=== PATIENT | male | born 1935 | race Caucasian/White ===

== ENCOUNTER 2017-08-14 13:54 | Emergency (ER) | payer BC, OTHER ==
--- NOTE | 2017-08-14 14:14 | CPEKG ---
Heart Rate: 66 RR Interval: 909 P-R Interval: 176 QRSD Interval: 98 QT Interval: 416 QTC Interval: 436 P Denton: 46 QRS Denton: -19 T Wave Denton: 22 EKG Severity - OTHERWISE NORMAL ECG - EKG Impression: SINUS RHYTHM EKG Impression: ATRIAL PREMATURE COMPLEX EKG Impression: BORDERLINE LEFT AXIS DEVIATION Electronically Signed By: Tayo Rudd 14-Aug-2017 14:26:02
--- NOTE | 2017-08-14 14:17 | EDPHY ---
H & P Smoking Status: Never smoked Time Seen by Provider: 08/14/17 14:07 HPI/ROS: CHIEF COMPLAINT: Dizziness HISTORY OF PRESENT ILLNESS: Patient says he has symptoms for"2 or 3 days"so his last known normal was at least more than 24 hr ago. He presents today saying that he"has trouble walking"because he feels weak and off balance. He specifically denies that it is positional. It does not get better or worse with turning his head or standing up. It is not associated with nausea or vomiting or neck pain or headache. Symptoms persistent. REVIEW OF SYSTEMS: Eye: no change in vision, no diplopia ENT: no sore throat Cardiac: no chest pain or syncope Pulmonary: no cough or SOB Abdomen: no vomiting, diarrhea, abdominal pain Musculoskeletal: Chronic back pain for which he had MRI done 2 weeks ago, this is unchanged Skin: no rash Neuro: no headache Constitutional: no fever : no urinary symptoms A comprehensive 10 point review of systems is otherwise negative aside from elements mentioned in the history of present illness. PAST MEDICAL HISTORY: Chronic back pain and arthritis for which he takes gabapentin Social history: Patient primarily lives in [facility] but is visiting his ex here in [place] and staying with friends. Nonsmoker. General Appearance: Alert and conversant, cooperative. Eyes: No scleral icterus. ENT, Mouth: Normal mucous membranes. Normal tympanic membranes. Respiratory: Normal respiratory effort, breath sounds equal, lungs are clear to auscultation. Cardiovascular: Regular rate and rhythm. Gastrointestinal: Abdomen is soft and non tender. Neurological: Alert, face symmetric, normal motor and sensory in extremities. Patient has fluent speech. He has normal oezcbh-wc-hikc and kvfp-yr-sdsh bilaterally. Toes are downgoing. Extraocular motion is intact. He walked back to the room unassisted. Skin: Warm and dry, no rashes. Musculoskeletal: No peripheral edema. Psychiatric: Not agitated. Emergency Department course/MDM: Patient will get MRI to evaluate his cerebellum and the possibility of ischemic stroke or tumor. I think vertebral or aortic dissection would be less likely. EKG shows sinus rhythm. Not a stroke alert because of the last known normal greater than 24 hr. 1500: signed out to [facility], MRI pending. (Tayo Rudd) Constitutional: Initial Vital Signs Temperature (C) 36.4 C 08/14/17 13:59 Heart Rate 79 08/14/17 13:59 Respiratory Rate 16 08/14/17 13:59 Blood Pressure 162/84 H 08/14/17 13:59 O2 Sat (%) 97 08/14/17 13:59 O2 Delivery Mode Room Air Allergies/Adverse Reactions: No Known Allergies Allergy (Unverified 08/14/17 13:57) Home Medications: Medication Instructions Recorded Gabapentin 08/14/17 Medical Decision Making - Diagnostics EKG Interpretation: 12-lead EKG interpreted by me; official reading is in trace master. My interpretation is sinus rhythm with PAC and borderline left axis. (Tayo Rudd) Imaging Results: Imaging Impressions Brain MRI 08/14/17 14:17 Impression: 1. Moderately advanced cerebral cortical atrophy, with chronic microvascular ischemic gliosis. 2. 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 There is no evidence of an acute or subacute infarct. Findings were discussed with Susie Bustos MD at 16:37, on 08/14/2017. Orbit X-Ray 08/14/17 15:00 Impression: 1. No radiopaque foreign object identified in the orbits. 2. Carotid atherosclerosis. Neck MRA 08/14/17 15:19 Impression: 1. MRA of the cervical carotid arteries demonstrates no evidence of a flow- limiting stenosis, occlusion, or dissection. 2. Mild nonhemodynamically significant stenosis involving the origin of the left vertebral artery near its ostium, and relatively diminutive appearance of the distal right vertebral artery, proximal to the vertebrobasilar confluence ( which can be seen as a normal variant). Measurements of carotid stenosis is based on the residual internal carotid diameter with [place] Symptomatic Carotid Endarterectomy Trial (NASCET) based stenosis levels. Findings were discussed with Susie Bustos MD at 16:37, on 08/14/2017. 4:40 p.m., discussed the above-noted imaging with staff radiologist Dr. Morales Plasencia. Please see reports above for further details. (Susie Berman) ED Course/Re-evaluation: I took over care of this patient at 3:00 p.m.. This patient presents to the emergency department with vertigo. We are currently waiting results of imaging including MRI of the brain and MRA of the neck. 4:50 p.m., I re-evaluated this patient. His repeat neurologic Assessment is nonfocal. Heel to braswell, finger to nose normal. He walks unassisted. Results of his MRI and MRA were discussed with him in detail. He does feel comfortable going home at this time and I feel he is safe for discharge. I discussed follow -up with Neurology for re-evaluation early this coming week. He endorses this plan. Return to emergency department precautions thoroughly reviewed with him. All of his questions were answered. He was discharged in good condition. ( Susie Berman) - Data Points Laboratory Results: Laboratory Results 08/14/17 14:17 08/14/17 14:17 18 08/14/17 14:17 14:17 WBC 5.33 10^3/uL 10^3/uL (3.80-9.50) RBC 4.06 10^6/uL L 10^6/uL (4.40-6.38) Hgb 13.4 g/dL L g/dL (13.7-17.5) Hct 39.1 % L % (40.0-51.0) MCV 96.3 fL fL (81.5-99.8) MCH 33.0 pg pg (27.9-34.1) MCHC 34.3 g/dL g/dL (32.4-36.7) RDW 13.1 % % (11.5-15.2) Plt Count 261 10^3/uL 10^3/uL (150-400) MPV 10.5 fL fL (8.7-11.7) Neut % (Auto) 57.1 % % (39.3-74.2) Lymph % (Auto) 27.4 % % (15.0-45.0) [place] % (Auto) 7.9 % % (4.5-13.0) Eos % (Auto) 6.6 % % (0.6-7.6) Baso % (Auto) 0.8 % % (0.3-1.7) Nucleat RBC Rel Count 0.0 % % (0.0-0.2) Absolute Neuts (auto) 3.05 10^3/uL 10^3/uL (1.70-6.50) Absolute Lymphs (auto) 1.46 10^3/uL 10^3/uL (1.00-3.00) Absolute Monos (auto) 0.42 10^3/uL 10^3/uL (0.30-0.80) Absolute Eos (auto) 0.35 10^3/uL 10^3/uL (0.03-0.40) Absolute Basos (auto) 0.04 10^3/uL 10^3/uL (0.02-0.10) Absolute Nucleated RBC 0.00 10^3/uL 10^3/uL (0-0.01) Immature Gran % 0.2 % % (0.0-1.1) Immature Gran # 0.01 10^3/uL 10^3/uL (0.00-0.10) Sodium 146 mEq/L H mEq/L (135-145) Potassium 4.2 mEq/L mEq/L (3.5-5.2) Chloride 108 mEq/L mEq/L (97-110) Carbon Dioxide 24 mEq/l mEq/l (22-31) Anion Gap 14 mEq/L mEq/L (8-16) BUN 23 mg/dL mg/dL (7-23) Creatinine 1.0 mg/dL mg/dL (0.7-1.3) Estimated GFR > 60 Glucose 112 mg/dL H mg/dL (70-100) Calcium 9.7 mg/dL mg/dL (8.5-10.4) Departure - Departure Disposition: Home, Routine, Self-Care Clinical Impression: Fatigue, Gait disturbance Condition: Good Instructions: Weakness (ED), Fall Prevention for Older Adults (ED) Additional Instructions: Read and follow provided instructions. Follow-up with Neurology, Dr. Morales Dewitt, Wednesday or Wednesday of this week for re-evaluation. Call their office on Wednesday morning for appointment time. Explain that this is for an emergency department follow-up. They will have access to our records here. Keep well hydrated. Return to the emergency department for worsening symptoms or other serious concerns. Referrals: NONE *PRIMARY CARE P,. [Primary Care Provider] - As per Instructions Morales Dewitt DO [Medical Doctor] - As per Instructions
[2017-08-14 14:23] LABS: PLATELET COUNT 261 10^3/uL (150-400)
[2017-08-14] MEDS ORDERED: GADOBUTROL 10 ML VIAL IVP ONE (15:22)
[2017-08-14 17:09] VITALS: BP 135/80
== END 2017-08-14 17:09 | disposition home or self-care (01) ==
DX: R53.83 Other fatigue (principal); R26.89 Other abnormalities of gait and mobility
CPT/HCPCS: 70200; 70548; 70551; 93005; 99285; A9585

== ENCOUNTER → 2017-09-08 | Outpatient (CLI) | payer OTHER | LOC: FIMAGING 14:10 | PROVIDERS: ATTEND Family Medicine | DX: Z01.818 Encounter for other preprocedural examination (principal); M51.36 Other intervertebral disc degeneration, lumbar region ==

== ENCOUNTER 2018-05-20 14:17 | Inpatient (IN) | payer OTHER ==
--- NOTE | 2018-05-20 14:45 | EDPHY ---
H & P Time Seen by Provider: 05/20/18 14:25 HPI/ROS: CHIEF COMPLAINT: "I need you to fix my hand" HISTORY OF PRESENT ILLNESS: 83-year-old male took a taxi to the ER complaining of right wrist pain for the past several weeks. Atraumatic. No fever no chills. This has been a chronic, reoccurring issue for him, "it's from arthritis". He denies trauma. Denies fall. Denies paresthesia. Denies fever or chills. Denies flu-like symptoms. PRIMARY CARE PROVIDER: None Past medical history: Possible history of rheumatoid arthritis, although patient has limited information about this. Prior history of left wrist fracture. Possible dementia,"I think I have memory issues" SOCIAL HISTORY: Currently living in a hotel in [place] . He has no local family. PHYSICAL EXAM (Prior to examination, patient consented to physical exam, hands were washed and my usual and customary physical exam procedures followed) 1) GENERAL: Well-developed, well-nourished, alert and oriented to person place. He is well put together, clean. His clothing is clean. He believes the year is is 2081. . Appears nontoxic 2) HEAD: Normocephalic, atraumatic 3) HEENT: Pupils equal, round, reactive to light bilaterally. Sclera anicteric. 4) NECK: Full range of motion, no meningeal signs. 5) LUNGS: Clear auscultation bilaterally, no wheezes, no rhonchi, no retractions. 6) HEART: Regular rate and rhythm, no murmur, no heave, no gallop. 7) ABDOMEN: No guarding, no rebound, no focal tenderness, negative McBurney's, negative Arrieta's, negative Rovsing's, negative peritoneal sign, 8) MUSCULOSKELETAL: Right hand: Erythema to the dorsal radial wrist and hand. Tender. Increased temperature and warmth with concurrent induration. Limited range of motion both actively and passively secondary to pain. No crepitus. No lymphangitic streaking. Otherwise, Moving all extremities, no focal areas of tenderness, no obvious trauma. No peripheral edema or discoloration. 9) BACK: No CVA tenderness, Erythema line vertebral tenderness, no fluctuance, no step-off, no obvious trauma, no visual or palpable abnormality. 10) SKIN: No rash, no petechiae. 11) Psychiatric: Patient is oriented X 3, there is no agitation. DIFFERENTIAL DIAGNOSIS: in no particular order including but not limited to fracture, sprain, cellulitis, compartment syndrome, septic arthritis, crystal arthritis Smoking Status: Never smoked Constitutional: Initial Vital Signs Temperature (C) 37.4 C 05/20/18 14:18 Heart Rate 88 05/20/18 14:18 Respiratory Rate 18 05/20/18 14:18 Blood Pressure 156/88 H 05/20/18 14:18 O2 Sat (%) 96 05/20/18 14:18 O2 Delivery Mode Room Air Allergies/Adverse Reactions: No Known Allergies Allergy (Verified 05/20/18 14:17) Home Medications: Medication Instructions Recorded NK [No Known Home Meds] 05/20/18 MDM/Departure - MDM Imaging Results: Imaging Impressions Hand X-Ray 05/20/18 14:31 Impression: 1. No acute osseous findings. 2. Multifocal degenerative change and chondrocalcinosis, suggesting CPPD with SLAC wrist. Wrist X-Ray 05/20/18 14:31 Impression: 1. No acute osseous findings. 2. Multifocal degenerative change and chondrocalcinosis with widening of the scapholunate interval, suggesting CPPD with SLAC wrist. Images reviewed myself Medications Given: Discontinued Medications Cefazolin Sodium/Dextrose (Ancef) 100 mls @ 200 mls/hr IV EDNOW ONE PRN Reason: Protocol Stop: 05/20/18 16:15 Last Admin: 05/20/18 16:24 Dose: 100 mls ED Course/Re-evaluation: Patient was also seen and examined by Dr. Trenton Costello in the ER. Concern for possible septic arthritis verses cellulitis versus crystalline arthritis in this patient. He has overlying skin changes. I do not think that diagnostic arthrocentesis is appropriate from the emergency department at this time given his overlying skin changes. Addition, the patient is noted to have inconsistencies in his history, concerning for possible dementia. I do not feel that the patient can be appropriately discharged at this time as I am concerned about his ability to follow up with outpatient appointments. He does present himself well, has clean clothing and his possessions with him which is encouraging. Upon speaking to home he consistently provides inconsistent information has concerning for possible dementia. He has a nonfocal neurologic examination otherwise. Doubt CVA. [address] Shahram Romero who will admit patient. - Depart Disposition: [facility] Acute Clinical Impression: Right wrist pain, Cellulitis of right hand Condition: Fair
[2018-05-20] MEDS ORDERED: ceFAZolin 2 GM/DEXTROSE 100 ML IV ONE (15:46)
[2018-05-20 16:25] LABS: PLATELET COUNT 311 10^3/uL (150-400)
[2018-05-20] MEDS ORDERED: ACETAMINOPHEN 325 MG TAB PO PRN (16:30)
--- NOTE | 2018-05-20 16:34 | PDGENHP ---
History and Physical History and Physical: CC: Sore wrist HISTORY: This patient comes into the ER today primarily because of pain and redness in swelling in his left wrist which has been worsening over the past 2 weeks without trauma. He has never had any trouble like this before. He has no symptoms of fever at all. None of his other joints are hurting and he has no history of inflammatory arthritis in the past but only history of osteoarthritis. In addition he has had some diarrhea for 2-3 weeks with no fever no abdominal pain and no bleeding. He has not eaten suspicious food or been around other people with diarrhea but he stays and hotel by himself being homeless. ROS: A comprehensive 10 system review revealed no other significant findings PAST MEDICAL HISTORY: Arthritis Chronic back pain, gabapentin for that FAMILY MEDICAL HISTORY: No specific joint issues SOCIAL HISTORY: Does not have a home at this time, mostly staying in hotels but at times on the street No tobacco MEDICATIONS: No medicines PHYSICAL EXAMINATION: Vital Signs: No fever, some hypertension, otherwise stable vitals Examination: General: alert, oriented, good mentation, relaxed Skin: warm, dry, good color, no rash HEENT: normal Neck: no mass or jvd Resps: relaxed Lungs: clear breath sounds Heart: regular, no murmur Abdomen: soft, nondistended, nontender, +BS, no mass Upper Extremities: Left wrist is red and tender swollen with small effusion and poor range of motion, all other joints unremarkable Lower Extremities: Joints of the lower extremities are normal, no edema, warm No Bleeding or bruising Neurologic: normal speech/language, 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 I would expect after 2 weeks of an infection he would be having a lot more pain and would be having fevers. Infection cannot be entirely ruled out. I suspect his diarrhea is norovirus which is prevalent in the community at present and infections such as this would be a typical trigger for pseudogout episode. PLANS: * Arthrocentesis of his left wrist which was not done in the ER, cultures will be sent * Toradol and prednisone for treatment of suspected pseudogout * Tramadol for additional pain relief as needed * No treatment needed for diarrheal illness is this is recently resolved in the last day or so I have reviewed the patient's case in detail with Jatin Hernandez of the ER I have reviewed the patient's past medical records as part of this assessment, including previous emergency room records from this hospital
[2018-05-20] MEDS: traMADol 50 MG TAB PO PRN (18:47)
--- NOTE | 2018-05-20 18:55 | HOSPPROG ---
Hospitalist Progress Note Assessment/Plan: PROCEDURE NOTE: INDICATION: Acute inflammatory arthropathy of wrist PROCEDURE: ARTHROCENTESIS OF LEFT WRIST UNDER STERILE CONDITIONS, NO ANESTHETIC After sterile prep the left wrist synovial space was entered with a 21 gauge needle. I was only able to get a few drops of fluid which was yellow with slight blood tinge. There were no complications in the procedure was tolerated well. Due to the patient's overall condition and differential diagnosis, it is felt that is most important to get culture at this time and that there is probably not enough fluid to do this and get crystal analysis, so I have not ordered crystal analysis of the fluid but only culture and Gram stain. It is felt strongly that he does have pseudogout and he can be treated for this either way , so he is being treated for that. See H&P Objective: Vital Signs Temp Pulse Resp BP Pulse Ox 38.2 C 81 20 157/96 H 96 05/20/18 16:56 05/20/18 16:56 05/20/18 16:56 05/20/18 16:56 05/20/18 16:56 05/19/18 05/20/18 05/21/18 06:59 06:59 06:59 Intake Total 100 Balance 100 ICD10 Worksheet Patient Problems: Problems Problem Status Onset Cellulitis of right hand Acute Right wrist pain Acute
[2018-05-20] MEDS: KETOROLAC 15 MG/1 ML SDV IVP SCH ×2 (19:03→23:57)
[2018-05-20] MEDS: predniSONE 20 MG TAB PO SCH (19:04)
[2018-05-20] MEDS: MELATONIN 3 MG TAB PO SCH (22:20)
[2018-05-21] MEDS: KETOROLAC 15 MG/1 ML SDV IVP SCH ×4 (05:03→23:55)
[2018-05-21] MEDS: ceFAZolin 2 GM/DEXTROSE 100 ML IV SCH ×4 (05:04→21:16)
[2018-05-21] MEDS: ENOXAPARIN 40 MG/0.4 ML SYR SC SCH (09:25)
[2018-05-21] MEDS: predniSONE 20 MG TAB PO SCH (09:25)
--- NOTE | 2018-05-21 10:20 | PDMN ---
Medical Necessity Medical necessity: Pt meets inpt criteria per MD order and MCG M-70, cellulitis. 83 y/o presenting w/worsening pain/redness/swelling in L wrist, admitted w/acute inflammatory arthropathy, developed fever last night, wrist joint fluid aspiration performed-these cultures and bl cultures pending. IV ABX' s, IV Toradol. High-risk comorbid condition of homelessness, also PMHx arthritis, and chronic back pain. Anticipate>2MN for further eval/management of above.
--- NOTE | 2018-05-21 16:20 | ASMTCMCOM ---
CM Note CM Note Notes: 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 Pt lives at the [facility] but states he will not have enough money to stay there much longer. Pt referred to [facility] to apply for a subsized apartment or assisted living apartment. Pt given paper application. CM also called leasing at [facility] to inquire about application to independent or assisted living. [facility] also contacted but they do not have a medicaid bed available in [place]. [facility] also contacted to screen pt for fpc care Medicaid. No therapies ordered. Pt will likely not qualify for short term rehab. CM to follow. D/C Plan: Independent to [facility] with application to assisted living Date Signed: 05/21/2018 04:19 PM Electronically Signed By:Lindsey Deleon
[2018-05-21] MEDS ORDERED: FLUMAZENIL 0.5 MG/5 ML MDV IVP PRN (19:09)
[2018-05-21] MEDS ORDERED: LORazepam 2 MG/ML INJ IVP PRN (19:09)
--- NOTE | 2018-05-21 19:58 | HOSPPROG ---
Hospitalist Progress Note Assessment/Plan: 1. R arm cellulitis -bd cx pending -iv abx -will stop prednisone 2. Acute diarrheal illness -GI PCR 3. HTN -no meds at home, -watch closely, consider starting meds 4. Homelessness -staying at a motel -I called his niece/POA, left a message for her to call me -can also reach out to ex 5. Cognitive issues -noted when I saw him as an outpt in 08/2017 -he never returned for FU -possible alcoholism, start on CIWA as a precautions -consider imaging/eval for competency 6. Iron defic, anemia -hemocult stools -IV iron PCP-Dr Adelina Mohan VTE prophy FULL CODE DISPO: unclear at this time with concerns re competency, IV abx for infection Subjective: Says still has pain in wrist. Insists on being covered up with blankets 'the right way' and wearing gloves. Doesn't remember meeting me in the office for a pre-op. can't explain why he didn't have surgery then, why he is not living with friends anymore. Says hasn't spoken to niece in a long time ( she was who he lised as POA in August 2017 when I saw him). Says had a 'nl' stool for first time today. Denies f/v/chills/abd pain/MAE/cough. Objective: Vital Signs Temp Pulse Resp BP Pulse Ox 97.5 F 76 18 156/83 H 96 05/21/18 15:33 05/21/18 15:33 05/21/18 15:33 05/21/18 15:33 05/21/18 15:33 Microbiology 05/21/18 13:30 Gastrointestinal Tract Panel (PCR) - Final Stool 05/20/18 18:00 Gram Stain - Final Wrist - Aspirate Laboratory Results 05/21/18 12:31 05/21/18 12:31 05/20/18 05/21/18 05/22/18 11:59 11:59 11:59 Intake Total 313 400 Balance 313 400 - Time Spent With Patient Time Spent with Patient: greater than 35 minutes Time Spent with Patient: Greater than 35 minutes spent on this patients care, greater than 50% of time spent counseling, educating, and coordinating care regarding the above mentioned plan. ICD10 Worksheet Patient Problems: Problems Problem Status Onset Cellulitis of right hand Acute Right wrist pain Acute
[2018-05-21] MEDS: MELATONIN 3 MG TAB PO SCH (21:16)
[2018-05-21] MEDS: ONDANSETRON 4 MG/2 ML VIAL IVP PRN (23:55)
[2018-05-22] MEDS: ceFAZolin 2 GM/DEXTROSE 100 ML IV SCH ×3 (05:26→21:47)
[2018-05-22] MEDS: KETOROLAC 15 MG/1 ML SDV IVP SCH ×4 (05:26→23:10)
[2018-05-22 05:31] LABS: PLATELET COUNT 323 10^3/uL (150-400)
[2018-05-22] MEDS: ONDANSETRON 4 MG/2 ML VIAL IVP PRN ×2 (08:01→18:24)
[2018-05-22] MEDS: THIAMINE HCL 500 MG in NS 100 ML IV SCH (09:54)
[2018-05-22] MEDS: MULTIVITAMINS 1 EACH TAB PO SCH (10:02)
[2018-05-22] MEDS: FOLIC ACID 1 MG TAB PO SCH (10:02)
[2018-05-22] MEDS: ENOXAPARIN 40 MG/0.4 ML SYR SC SCH (10:02)
[2018-05-22] MEDS: SODIUM FERRIC GLUCONAT/SUCROSE 125 MG in NS 100 ML IV SCH (10:26)
--- NOTE | 2018-05-22 15:51 | HOSPPROG ---
Hospitalist Progress Note Assessment/Plan: 1. R arm cellulitis -bd cx neg -iv abx, change to PO 2. Acute diarrheal illness per report -GI PCR not done as had a formed stool -no diarrhea here so far 3. HTN -no meds chronically -watch closely, consider starting meds 4. Homelessness -staying at a motel -I called his niece/POA, left a message for her to call me, his sister from [place] called me back. She reports he is very erratic, shows up in [place] then disappears. Has had 'trouble' for yrs. She is not his POA, and says niece can call back if needed -he says we can also reach out to ex - I called listed cell phone in chart, wrong number 5. 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 Iron defic, anemia -hemocult stools -IV iron PCP-Dr Adelina Mohan [facility]TE prophy- [facility] FULL CODE DISPO: unclear at this time with concerns re competency Subjective: Says pain better in wrist. No n/v. No further diarrhea. Denies CP/ SOB. Objective: Vital Signs Temp Pulse Resp BP Pulse Ox 98.3 F 73 16 118/68 95 05/22/18 12:00 05/22/18 12:00 05/22/18 12:00 05/22/18 12:00 05/22/18 12:00 Microbiology 05/20/18 18:00 Gram Stain - Final Wrist - Aspirate 05/21/18 13:30 Gastrointestinal Tract Panel (PCR) - Final Stool Laboratory Results 05/22/18 05:22 05/22/18 05:22 05/21/18 05/22/18 05/23/18 11:59 11:59 11:59 Intake Total 313 700 Balance 313 700 - Time Spent With Patient Time Spent with Patient: greater than 25 minutes Time Spent with Patient: Greater than 25 minutes spent on this patients care, greater than 50% of time spent counseling, educating, and coordinating care regarding the above mentioned plan. - Physical Exam Constitutional: no apparent distress, not in pain Eyes: anicteric sclera Ears, Nose, Mouth, Throat: moist mucous membranes, hearing normal Cardiovascular: regular rate and rhythym, No edema Respiratory: no respiratory distress, no rales or rhonchi, clear to auscultation Gastrointestinal: normoactive bowel sounds, soft, non-tender abdomen Musculoskeletal: other (slight erythema and warmth or R wrist, mild tenderness. Improved from yesterdays exam) Psychiatric: flat affect, poor insight, poor memory, No thought process linear ICD10 Worksheet Patient Problems: Problems Problem Status Onset Right wrist pain Acute Cellulitis of right hand Acute
[2018-05-22] MEDS: FAMOTIDINE 20 MG TAB PO SCH (16:54)
[2018-05-22] MEDS: MELATONIN 3 MG TAB PO SCH (21:47)
[2018-05-23] MEDS: CEPHALEXIN 250 MG CAP PO SCH ×4 (05:41→23:07)
[2018-05-23] MEDS: KETOROLAC 15 MG/1 ML SDV IVP SCH ×4 (05:41→23:03)
[2018-05-23 07:50] LABS: HIV TYPE 1 AND 2 NEGATIVE (NEGATIVE)
[2018-05-23] MEDS: ENOXAPARIN 40 MG/0.4 ML SYR SC SCH (08:26)
[2018-05-23] MEDS: FOLIC ACID 1 MG TAB PO SCH (08:27)
[2018-05-23] MEDS: MULTIVITAMINS 1 EACH TAB PO SCH (08:27)
[2018-05-23] MEDS: traMADol 50 MG TAB PO PRN (08:28)
[2018-05-23] MEDS: FAMOTIDINE 20 MG TAB PO SCH (08:28)
[2018-05-23] MEDS: SODIUM FERRIC GLUCONAT/SUCROSE 125 MG in NS 100 ML IV SCH (08:29)
[2018-05-23] MEDS ORDERED: MAGNESIUM HYDROXIDE 30 ML UDCUP PO PRN (09:04)
[2018-05-23] MEDS ORDERED: BISACODYL 10 MG SUPP PR PRN (09:04)
[2018-05-23] MEDS ORDERED: LACTULOSE 20 GM/30 ML UDCUP PO PRN (09:04)
[2018-05-23] MEDS: THIAMINE HCL 500 MG in NS 100 ML IV SCH (10:49)
--- NOTE | 2018-05-23 12:46 | HOSPPROG ---
Hospitalist Progress Note Assessment/Plan: Mian Acosta is an 83 y/o male who presented to the ER with pain and redness to his left wrist which had been worsening. Today is my first encounter, chart reviewed. * R arm, wrist cellulitis -blood cx neg -on Keflex -minimal redness and patient says it is much improved -elevated CRP *Acute diarrheal illness -none further * HTN -bp elevated this morning -will follow, not on treatment * Homelessness -patient shares he and his ex have been x 15 years, but she is willing to have her live w him -spoke w CM and Nikolas gave her a # to call his ex -previous provider was unable to reach ex-, wrong # on chart -he has a sister in [place], Her # is [phone]. * Cognitive issues/dementia -his PCP, Dr Mohan, noted this when she saw him in August 2017 -no f/u with her -awaiting speech therapy cognitive evaluation -reviewed his MRI-nothing acute * Iron defic, anemia -Hemoccult stools -IV iron *hyponatremia -mild *plan: CM trying to contact Nikolas's ex to see if this is a possibility for him to live w her. He has some short term memory concerns, but was alert and appropriate during my interview. He had insight that he needs a place to stay, said his wrist is much improve. Subjective: Nikolas said he is feeling well today, wrist isn't hurting. Says the redness and swelling are better. Objective: Vital Signs Temp Pulse Resp BP Pulse Ox 36.9 C 76 16 146/68 H 95 05/23/18 11:20 05/23/18 11:20 05/23/18 11:20 05/23/18 11:20 05/23/18 11:20 Microbiology 05/20/18 18:00 Gram Stain - Final Wrist - Aspirate Laboratory Results 05/23/18 04:49 05/23/18 04:49 05/22/18 05/23/18 05/24/18 05:59 05:59 05:59 Intake Total 700 500 400 Balance 700 500 400 - Physical Exam Constitutional: no apparent distress, appears nourished, not in pain Eyes: PERRL Ears, Nose, Mouth, Throat: hard of hearing Cardiovascular: regular rate and rhythym Respiratory: no respiratory distress Gastrointestinal: normoactive bowel sounds Skin: warm, other (right wrist w some redness, no swelling, non tender) Musculoskeletal: generalized weakness Neurologic: other (alert and oriented to name, place, situation) Psychiatric: interacting appropriately, poor memory ICD10 Worksheet Patient Problems: Problems Problem Status Onset Cellulitis of right hand Acute Right wrist pain Acute
--- NOTE | 2018-05-23 14:14 | ASMTCMCOM ---
CM Note CM Note Notes: PT worked w/ pt and has cleared him to d/c to his ex . CM met w/ pt and confirmed this plan. Pts ex's name is Pat. Her address is [address] [place] [address] and her number is [phone]. CM left a msg for Pat. SPL is going to see pt and make their recommendations. CM spoke to Yun w/ [employer]. She will screen him for Medicaid. CM to follow. Plan: Independent Date Signed: 05/23/2018 02:13 PM Electronically Signed By:AARON Nguyễn
[2018-05-23] MEDS: MELATONIN 3 MG TAB PO SCH (21:45)
[2018-05-23] MEDS: SENNOSIDES/DOCUSATE SODIUM TAB PO SCH (21:45)
[2018-05-24] MEDS: KETOROLAC 15 MG/1 ML SDV IVP SCH ×3 (05:24→17:51)
[2018-05-24] MEDS: CEPHALEXIN 250 MG CAP PO SCH ×3 (05:26→17:50)
[2018-05-24] MEDS: ENOXAPARIN 40 MG/0.4 ML SYR SC SCH (08:32)
[2018-05-24] MEDS: FAMOTIDINE 20 MG TAB PO SCH (08:33)
[2018-05-24] MEDS: THIAMINE HCL 500 MG in NS 100 ML IV SCH (08:33)
[2018-05-24] MEDS: FOLIC ACID 1 MG TAB PO SCH (08:33)
[2018-05-24] MEDS: MULTIVITAMINS 1 EACH TAB PO SCH (08:33)
[2018-05-24] MEDS: SENNOSIDES/DOCUSATE SODIUM TAB PO SCH ×2 (08:34→22:31)
[2018-05-24] MEDS: POLYETHYLENE GLYCOL 3350 17 GM PKT PO SCH (08:34)
[2018-05-24] MEDS: SODIUM FERRIC GLUCONAT/SUCROSE 125 MG in NS 100 ML IV SCH (10:40)
--- NOTE | 2018-05-24 11:18 | ASMTCMCOM ---
CM Note CM Note Notes: Met with patient and spoke with patient's ex- via phone #[phone], regarding discharge plan of care. Patient states "I am going to live with my ex-." Pat agrees to take patient in but is hoping to establish a more long-term plan for the future. Patient is agreeable to [facility] upon d/c. Spoke with Phyllis at [facility], address and phone # for Pat provided. Patient and also agreeable to a referral to "[facility]," an agency that will work with patients and families on long-term placement at [place] or [facility]. Spoke with Jatin العلي #[phone], referral accepted. Jatin will follow-up this week. Patient plans on taking a cab to ex-'s home upon d/c. CM asked patient if he would like an update to be given to niece, SABA, patient declines and states, "I will call her." CM will follow. Plan: [facility] RN/PT/OPERATING ROOM TECH/SW Date Signed: 05/24/2018 11:18 AM Electronically Signed By:Susie Colorado RN
--- NOTE | 2018-05-24 12:57 | HOSPPROG ---
Hospitalist Progress Note Assessment/Plan: Mian Acosta is an 83 y/o male who presented to the ER with pain and redness to his left wrist which had been worsening. * R arm, wrist cellulitis -blood cx neg -on Keflex -minimal redness and patient says it is much improved -elevated CRP *Acute diarrheal illness -none further * HTN -bp elevated this morning -will follow, not on treatment * Homelessness -patient shares he and his ex have been x 15 years, but she is willing to have her live w him -spoke w LINDA and Nikolas gave her a # to call his ex -previous provider was unable to reach ex-, wrong # on chart -he has a sister in [place], Her # is [phone]. * Cognitive issues/dementia -his PCP, Dr Mohan, noted this when she saw him in August 2017 -no f/u with her -reviewed ST evaluation - he has cognitive impairment, recommendation is an AL and 24 hour care -reviewed his MRI-nothing acute -he is alert, oriented to place, why he is here, knows the is 1999 something, wasn't clear who the president was, thought it was Bryant * Iron defic, anemia -cont iron therapy *hyponatremia -mild *plan: CM spoke to the patient's ex , she is willing to have her stay w him , will dc tomorrow w home care. Subjective: Nikolas says he is weary of being in the hospital. Objective: Vital Signs Temp Pulse Resp BP Pulse Ox 36.9 C 75 17 113/59 L 96 05/24/18 11:07 05/24/18 11:07 05/24/18 11:07 05/24/18 11:07 05/24/18 11:07 Microbiology 05/20/18 18:00 Gram Stain - Final Wrist - Aspirate Laboratory Results 05/23/18 04:49 05/23/18 04:49 05/23/18 05/24/18 05/25/18 05:59 05:59 05:59 Intake Total 500 1700 Balance 500 1700 - Physical Exam Constitutional: no apparent distress, appears nourished Eyes: PERRL Ears, Nose, Mouth, Throat: hearing normal Cardiovascular: regular rate and rhythym Respiratory: no respiratory distress Skin: warm, other (right wrist redness almost completely resolved) Musculoskeletal: generalized weakness Psychiatric: interacting appropriately, poor memory ICD10 Worksheet Patient Problems: Problems Problem Status Onset Cellulitis of right hand Acute Right wrist pain Acute
[2018-05-24] MEDS: MELATONIN 3 MG TAB PO SCH (22:31)
[2018-05-25] MEDS: KETOROLAC 15 MG/1 ML SDV IVP SCH ×3 (00:17→12:39)
[2018-05-25] MEDS: CEPHALEXIN 250 MG CAP PO SCH ×2 (00:17→06:27)
[2018-05-25] MEDS ORDERED: THIAMINE HCL 100 MG TAB PO SCH (09:00)
[2018-05-25] MEDS: SENNOSIDES/DOCUSATE SODIUM TAB PO SCH (09:31)
[2018-05-25] MEDS: MULTIVITAMINS 1 EACH TAB PO SCH (09:31)
[2018-05-25] MEDS: FAMOTIDINE 20 MG TAB PO SCH (09:31)
[2018-05-25] MEDS: ENOXAPARIN 40 MG/0.4 ML SYR SC SCH (09:31)
[2018-05-25] MEDS: FOLIC ACID 1 MG TAB PO SCH (09:31)
[2018-05-25] MEDS: POLYETHYLENE GLYCOL 3350 17 GM PKT PO SCH (09:38)
--- NOTE | 2018-05-25 09:55 | HOSPPROG ---
Hospitalist Progress Note Assessment/Plan: Mian Acosta is an 83 y/o male who presented to the ER with pain and redness to his left wrist which had been worsening. * R arm, wrist cellulitis -blood cx neg -on Keflex (today will be day 7 of abx therapy, will dc) -redness has resolved *Acute diarrheal illness -said he had a bout of diarrhea this mornig * HTN -added Amlodipine * Homelessness -LINDA spoke w his ex , and she is willing to have him live w her * Cognitive issues/dementia -his PCP, Dr Mohan, noted this when she saw him in August 2017- updated her on plan of care -no f/u with her -reviewed ST evaluation - he has cognitive impairment, recommendation is an AL and 24 hour care -reviewed his MRI-nothing acute * Iron defic, anemia -cont iron therapy *hyponatremia -mild *plan: dc today, to f/u w Dr Mohan, will have script for [employer] filled here Subjective: Nikolas is tired and says he isn't feeling well, appetite is good. Mostly tired. Objective: Vital Signs Temp Pulse Resp BP Pulse Ox 36.9 C 64 16 167/86 H 96 05/25/18 07:18 05/25/18 07:18 05/25/18 07:18 05/25/18 09:31 05/25/18 07:18 Microbiology 05/20/18 18:00 Gram Stain - Final Wrist - Aspirate Laboratory Results 05/23/18 04:49 05/23/18 04:49 05/24/18 05/25/18 05/26/18 05:59 05:59 05:59 Intake Total 1700 1750 Balance 1700 1750 - Physical Exam Constitutional: uncomfortable Eyes: PERRL, other (wearing glasses) Ears, Nose, Mouth, Throat: hearing normal Respiratory: no respiratory distress Gastrointestinal: normoactive bowel sounds Skin: warm, other (redness has resolved on right wrist) Musculoskeletal: generalized weakness Neurologic: other (alert and appropriate) ICD10 Worksheet Patient Problems: Problems Problem Status Onset Cellulitis of right hand Acute Right wrist pain Acute
[2018-05-25] MEDS ORDERED: MAG HYDROX/AL HYDROX/SIMETH 30 ML UDCUP PO PRN (10:48)
--- NOTE | 2018-05-25 10:53 | PDIAF ---
- Diagnosis Diagnosis: right wrist cellulitis, dementia, diarrhea Code Status: Full Code - Medication Management Discharge Medications: electronically signed and located in the Home Medication List. PICC Care - Routine: N/A - Orders Services needed: Home Care, Registered Nurse, Physical Therapy, Occupational Therapy, Speech Language Pathologist Home Care Face to Face: I certify that this patient was under my care and that I had the required [id number] encounter meeting the encounter requirements on the discharge day. My findings support the fact that the patient is homebound as defined in Home Care Face to Face Continued: CMS Chapter 7 Medicare Benefits Manual 30.1.1 , The condition of the patient is such that there exists a normal inability to leave home and consequently, leaving home would require a considerable and taxing effort. Diet Recommendation: no restrictions on diet Diet Texture: Regular Texture Diet Additional Instructions: you need to see Dr Mohan in 2 weeks for follow up care take the Amlodipine daily, you have high blood pressure you have some anemia that needs to be monitored you can take oral Iron with vitamin c to help w the anemia-the pharmacist at [facility] can show you which one to take - Follow Up Care Current Providers and Referrals: NONE *PRIMARY CARE P,. [Unknown] - As per Instructions Adelina Mohan MD [Primary Care Provider] -
--- NOTE | 2018-05-25 11:26 | GDS ---
DISCHARGE DIAGNOSES: 1. Right wrist cellulitis. 2. Acute diarrheal illness. 3. Hypertension. 4. Homelessness. 5. Cognitive issues, dementia. 6. Iron-deficiency anemia. 7. Hyponatremia. HISTORY OF PRESENT ILLNESS: Briefly, Mr. Acosta is an 83-year-old male who presented to the ER with pain and redness to his left wrist, which had been worsening. He was treated with intravenous antibiotics, and transitioned to oral antibiotics. This is markedly improved. There was concern because he has significant dementia. His primary care provider, who also works as a hospitalist, was concerned. He had an MRI showed underlying cerebral and cerebellar atrophy with ventriculomegaly and mild white matter microvascular ischemic gliosis. No acute intracranial hemorrhage, cortical ischemia, mass or mass effect was noted. He was seen and evaluated by Speech Therapy who did note that he does have cognitive issues. The plan is for him to be discharged home with home care. Will have Speech Therapy and PT and OT work with him. Further followup with Dr. Mohan. HOSPITAL COURSE PER PROBLEM: 1. Right wrist cellulitis completely resolved. Still some tenderness there. Suspect he may have some underlying gout. 2. Acute diarrheal illness. He has had no diarrhea throughout his stay but said he had 1 bout this morning. 3. Hypertension. Amlodipine is a new medication for him. I will have prescription filled at the hospital and brought to him prior to discharge. 4. Homelessness. His ex- will be picking him up today at 4:30. She is willing to have him live with her. 5. Cognitive issues, dementia. I suspect this has been ongoing. He will follow up with Dr. Mohan. Speech Therapy noted that he has a cognitive impairment. Recommended an assisted living or 24-hour care. Have ordered home care to check on him. 6. Iron-deficiency anemia. Oral iron therapy. 7. Hyponatremia, mild. CONDITION ON DISCHARGE: Discharge condition is overall stable, except for an elevated blood pressure of 167/86. Heart rate is 64, respiratory rate is 16. O2 saturations on room air are 96%. Temperature is 36.9 Celsius. MEDICATION AT DISCHARGE: Please see the EMR. DISCHARGE INSTRUCTIONS: 1. To take the amlodipine daily. 2. To follow up with Dr. Mohan. Make an appointment in 1-2 weeks to see her. 3. To take oral iron with vitamin C to help treat his anemia. Greater than 30 minutes discharging and coordinating the patient's care. /[id number]/MODL MTDD
[2018-05-25 12:43] VITALS: BP 136/79
--- NOTE | 2018-05-25 14:59 | ASMTLACE ---
LACE Length of stay for Answers: 4-6 days current admission Acuity / Level of Answers: Yes Care: Did the patient have an inpatient admission? Comorbidities - select Answers: Opioid dependence all that apply / Chronic pain # of Emergency department Answers: 1-2 visits in the last 6 months Score: 12 Date Signed: 05/25/2018 02:58 PM Electronically Signed By:AARON Nguyễn
--- NOTE | 2018-05-25 15:01 | ASMTDCNOTE ---
Case Management Discharge Discharge Order Complete? Answers: Yes Patient to Obtain Answers: via Family Medications Transportation Arranged Answers: Family/Friends EMTALA Complete Answers: No Case Management Transport Answers: No Form Complete Faxed Final Orders Answers: Yes Agency/Facility Transfer Answers: Yes Report Printed & Faxed to Receiving Agency Family Notified Answers: Yes Discharge Comments Notes: CM spoke to Tita Coleman NP and JOHNNA Aldrich. Pt is being d/c'd today. CM notified [facility] of the d/c. CM spoke to pts ex, Pat. Pat reports that he will come and pick pt up when she gets out of work at 4:30pm. CM available for changes. Plan: [facility]; RN, PT, SPL, ENGINEERING TECHNICAL SPECIALIST Date Signed: 05/25/2018 03:00 PM Electronically Signed By:AARON Nguyễn
--- NOTE | 2018-05-25 15:02 | ASDISCHSUM ---
Discharge Information Plan Status:Home with Home Health Medically Cleared to Leave: Discharge Date: D/C Disposition: ADT D/C Disposition:Home Health Service Projected Discharge Date:05/24/2018 11:00 AM Transportation at D/C: Discharge Delay Reason: Follow-Up Date:05/24/2018 11:00 AM Discharge Slot: Final Diagnosis: Placement Information Referral Type:*Home Health Care Services Referral ID:[facility]-[id number] Provider Name:[facility] Address 1:[address] Address 2: City:[place] Selection Factors: State:[place] Patient Contact Information Contact Name:DONN Relationship:Other Address:[address] City:[place] Alternate Phone: State/Zip Code:[place] [address] Email: Financial Information Financial Class:Medicare Advantage Plans Primary Plan Desc:[employer] MEDICARE ADV Primary Plan Number:[id number] Secondary Plan Desc: Secondary Plan Number: Assessment Information [facility] Progress Note CM Note CM Note Notes: 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 Pt lives at the [facility] but states he will not have enough money to stay there much longer. Pt referred to [facility] to apply for a subsized apartment or assisted living apartment. Pt given paper application. CM also called talha at [facility] to inquire about application to independent or assisted living. [facility] also contacted but they do not have a medicaid bed available in [place]. [facility] also contacted to screen pt for exterminator care Medicaid. No therapies ordered. Pt will likely not qualify for short term rehab. CM to follow. D/C Plan: Independent to [facility] with application to assisted living Date Signed: 05/21/2018 04:19 PM Electronically Signed By:Lindsey Deleon LACE LACE Length of stay for Answers: 4-6 days current admission Acuity / Level of Answers: Yes Care: Did the patient have an inpatient admission? Comorbidities - select Answers: Opioid dependence all that apply / Chronic pain # of Emergency department Answers: 1-2 visits in the last 6 months Score: 12 Date Signed: 05/25/2018 02:58 PM Electronically Signed By:AARON Nguyễn [facility] LINDA Progress Note CM Note CM Note Notes: PT worked w/ pt and has cleared him to d/c to his ex . CM met w/ pt and confirmed this plan. Pts ex's name is Bev. Her address is [address] [place] [address] and her number is [phone]. CM left a msg for Bev. [facility] is going to see pt and make their recommendations. CM spoke to [employer]/ [employer]. She will screen him for Medicaid. CM to follow. Plan: Independent Date Signed: 05/23/2018 02:13 PM Electronically Signed By:AARON Nguyễn [facility] LINDA Progress Note CM Note LINDA Note Notes: Met with patient and spoke with patient's ex- via phone #[phone], regarding discharge plan of care. Patient states "I am going to live with my ex-." Pat agrees to take patient in but is hoping to establish a more long-term plan for the future. Patient is agreeable to [facility] upon d/c. Spoke with Phyllis at [facility], address and phone # for Pat provided. Patient and also agreeable to a referral to "[facility]," an agency that will work with patients and families on long-term placement at [place] or [facility]. Spoke with Jatin العلي #[phone], referral accepted. Jatin will follow-up this week. Patient plans on taking a cab to ex-'s home upon d/c. CM asked patient if he would like an update to be given to SABA sadler, patient declines and states, "I will call her." CM will follow. Plan: [facility] RN/PT/POST ANESTHESIA NURSE/SW Date Signed: 05/24/2018 11:18 AM Electronically Signed By:Susie Colorado RN Case Management Discharge Plan Note Case Management Discharge Discharge Order Complete? Answers: Yes Patient to Obtain Answers: via Family Medications Transportation Arranged Answers: Family/Friends EMTALA Complete Answers: No Case Management Transport Answers: No Form Complete Faxed Final Orders Answers: Yes Agency/Facility Transfer Answers: Yes Report Printed & Faxed to Receiving Agency Family Notified Answers: Yes Discharge Comments Notes: LINDA spoke to Tita Coleman NP and JOHNNA Aldrich. Pt is being d/c'd today. CM notified [facility] of the d/c. CM spoke to pts ex, Pat. Pat reports that he will come and pick pt up when she gets out of work at 4:30pm. CM available for changes. Plan: [facility]; RN, PT, SPL, PROVIDER NETWORK MGR Date Signed: 05/25/2018 03:00 PM Electronically Signed By:AARON Nguyễn Intervention Information Intervention Type:*Incorrect Registration Date of Service:05/21/2018 12:15 PM Patient Type:Inpatient Staff Member:JOHNNA Bruno, [facility] Hours: Discipline: Severity: Comment: Intervention Type:*IM-Signed Date of Service:05/25/2018 12:30 PM Patient Type:Inpatient Staff Member:Brit Whitfield Hours: Discipline: Severity: Comment:
[2018-05-26] MEDS ORDERED: amLODIPine BESYLATE 5 MG TAB PO SCH (09:00)
== END 2018-05-25 17:53 | disposition home health service (06) | DRG 603 ==
LOC: OBSVTOIN 16:31 → F3N 16:50
PROVIDERS: ADMIT Internal Medicine; ATTEND Internal Medicine
PROC: 0R9P3ZX Drainage of Left Wrist Joint, Percutaneous Approach, Diagnostic (ICD-10-PCS; principal; 2018-05-20)
DX: L03.113 Cellulitis of right upper limb (principal); E87.1 Hypo-osmolality and hyponatremia; R19.7 Diarrhea, unspecified; I10 Essential (primary) hypertension; Z59.0 Homelessness; F03.90 Unspecified dementia, unspecified severity, without behavioral disturbance, psychotic disturbance, mood disturbance, and anxiety; D50.9 Iron deficiency anemia, unspecified
CPT/HCPCS: 82607-90; 92507-GN; 92523-GN; 96365; 97161-GP; 97530-GP; J0690; J1650; J1885; J2405; J2916; J3411; J7512

== ENCOUNTER 2018-06-13 05:44 | Inpatient (IN) | payer OTHER ==
[2018-06-13] MEDS ORDERED: TRANEXAMIC ACID 1,000 MG in NS 100 ML IV ONE ×2 (06:00→10:55)
[2018-06-13] MEDS ORDERED: fentaNYL 50 MCG in SYRINGE INTRATHECAL 1 SYR IT ONE (06:08)
[2018-06-13] MEDS ORDERED: morphINE PF 0.2 MG in SYRINGE INTRATHECAL 1 SYR IT ONE (06:08)
[2018-06-13] MEDS ORDERED: GABAPENTIN 300 MG CAP PO ONE (06:08)
[2018-06-13] MEDS ORDERED: ceFAZolin 2 GM/DEXTROSE 100 ML IV ONE (06:08)
[2018-06-13] MEDS ORDERED: ACETAMINOPHEN 500 MG TAB PO ONE (06:08)
[2018-06-13] MEDS ORDERED: LR 1,000 ML IV ONE (06:09)
[2018-06-13] MEDS ORDERED: LIDOCAINE 1% 2 ML INJ ID PRN (06:09)
[2018-06-13] MEDS ORDERED: THROMBIN (BOVINE) 20,000 UNIT VIAL TP ONE ×2 (06:46→15:29)
[2018-06-13] MEDS ORDERED: BUPIVACAINE 0.25% 30 ML SDV ONE (06:46)
[2018-06-13] MEDS ORDERED: CITRATE DEXTROSE SOLN 500 ML BAG ONE ×2 (06:46→12:59)
[2018-06-13] MEDS ORDERED: SURGIFLO MATRIX KIT WITH THROMBIN 8 ML TP ONE (06:46)
[2018-06-13] MEDS ORDERED: BACITRACIN 50,000 UNITS/10 ML SYR IRR ONE ×2 (06:47→13:50)
[2018-06-13] MEDS ORDERED: EPINEPHrine 1 MG/ML INJ ONE (06:48)
--- NOTE | 2018-06-13 07:01 | PDHPUP ---
History & Physical Update H&P update statement: This history and physical update is based on an assessment of the patient which was completed after admission or registration (within 24 hours), but prior to the surgery/procedure. H&P update: H&P reviewed & patient examined, no change in patient's condition since H&P completed
[2018-06-13] MEDS ORDERED: MIDAZOLAM 2 MG/2 ML VIAL IVP ONE (07:05)
--- NOTE | 2018-06-13 07:08 | PDANEPAE ---
ANE History of Present Illness spinal stenosis s/f multi-level lumbar fusion ANE Past Medical History - Cardiovascular History Hx Hypertension: Yes Hx Arrhythmias: No Hx Chest Pain: No Hx Coronary Artery / Peripheral Vascular Disease: No Hx CHF / Valvular Disease: No Hx Palpitations: No - Pulmonary History Hx COPD: No Hx Asthma/Reactive Airway Disease: No Hx Recent Upper Respiratory Infection: No Hx Oxygen in Use at Home: No Hx Sleep Apnea: No Sleep Apnea Screening Result - Last Documented: Positive - Neurologic History Hx Cerebrovascular Accident: No Hx Seizures: No Hx Dementia: Yes Neurologic History Comment: moderate at least - Endocrine History Hx Diabetes: No - Renal History Hx Renal Disorders: No - Liver History Hx Hepatic Disorders: No - Neurological & Psychiatric Hx Hx Neurological and Psychiatric Disorders: Yes Neurological / Psychiatric History Comment: right foot quivers - Cancer History Hx Cancer: No - Congenital Disorder History Hx Congenital Disorders: No - GI History Hx Gastrointestinal Disorders: Yes Gastrointestinal History Comment: acid reflux - Other Health History Other Health History: CRAIG. anemia - Chronic Pain History Chronic Pain: Yes (states, 8-10) - Surgical History Prior Surgeries: none in last 5 yrs. R hip replacement. left TKA. Hx. of spinal surgery ANE Review of Systems Review of Systems: - Exercise capacity METS (RN): 4 METS ANE Patient History - Allergies Allergies/Adverse Reactions: codeine Allergy (Verified 06/10/18 12:08) Other-Enter Comments - Home Medications Home medications: home medication list seen and reviewed Home Medications: Acetaminophen [Tylenol 325mg (*)] 06/10/18 [Last Taken 06/12/18 08:00] Melatonin [Melatonin 3 MG (*)] 06/10/18 [Last Taken 06/12/18 20:00] Multivitamins [Multivitamin (*)] 06/10/18 [Last Taken 06/06/18] Prilosec 06/10/18 [Last Taken 06/12/18 08:00] amLODIPine BESYLATE [Norvasc 5 mg (*)] 06/10/18 [Last Taken 06/13/18 05:30] - NPO status NPO Status: no food or drink >8 hours - Anes Hx Anes Hx: no prior problems - Smoking Hx Smoking Status: Never smoked - Alcohol Use Alcohol Use: Occasionally - Family Anes Hx Family Anes Hx: none Family Hx Anesthesia Complications: mother coded under anesthesia ANE Labs/Vital Signs - Vital Signs Height: 152.4 cm Weight: 72.575 kg ANE Physical Exam - Airway Neck exam: decreased ROM Mallampati Score: Class 2 Mouth exam: poor dentition - Pulmonary Pulmonary: no respiratory distress - Cardiovascular Cardiovascular: regular rate and rhythym - ASA Status ASA Status: II ANE Anesthesia Plan Anesthesia Plan: general endotracheal anesthesia Lines/Monitors: arterial line, additional IV (risk of blindness and increased dementia explained to pt and ex-)
[2018-06-13] MEDS ORDERED: fentaNYL 100 MCG/2 ML INJ ONE ×2 (07:16→19:01)
[2018-06-13] MEDS ORDERED: PROPOFOL/EMULSION 500 MG/50 ML BOTTLE IV ONE ×3 (07:16→15:43)
[2018-06-13] MEDS ORDERED: REMIFENTANIL HCL 1 MG VIAL ONE ×3 (07:16→15:43)
[2018-06-13] MEDS ORDERED: DEXAMETHASONE 4 MG/ML VIAL ONE ×4 (07:17→15:46)
[2018-06-13] MEDS ORDERED: PHENYLEPHRINE HCL 100 MCG/ML SYR ONE (07:17)
[2018-06-13] MEDS ORDERED: ONDANSETRON 4 MG/2 ML VIAL ONE (07:17)
[2018-06-13] MEDS ORDERED: PHENYLEPHRINE 10 MG/ML SDV ONE ×3 (07:17→16:22)
[2018-06-13] MEDS ORDERED: LIDOCAINE 2% 100 MG/5 ML SYR ONE (07:17)
[2018-06-13] MEDS ORDERED: ePHEDrine SULFATE 25 MG/5 ML SYR ONE (07:27)
[2018-06-13] MEDS ORDERED: ceFAZolin 1 GM VIAL ONE ×3 (15:46)
[2018-06-13] MEDS ORDERED: DEXAMETHASONE 4 MG/ML VIAL IVP PRN (17:18)
[2018-06-13] MEDS ORDERED: LR 500 ML IV PRN (17:18)
[2018-06-13] MEDS ORDERED: ONDANSETRON 4 MG/2 ML VIAL IVP PRN ×2 (17:18→17:40)
[2018-06-13] MEDS ORDERED: METOCLOPRAMIDE 10 MG/2 ML VIAL IVP PRN (17:18)
[2018-06-13] MEDS ORDERED: LABETALOL HCL 5 MG/ML 20 ML MDV IVP PRN (17:18)
[2018-06-13] MEDS ORDERED: NALOXONE HCL 0.4 MG/ML INJ IVP PRN (17:18)
[2018-06-13] MEDS ORDERED: PHENYLEPHRINE HCL 100 MCG/ML SYR IVP PRN (17:18)
[2018-06-13] MEDS ORDERED: MEPERIDINE 25 MG/0.5 ML AMP IVP PRN (17:18)
[2018-06-13] MEDS ORDERED: oxyCODONE IR 5 MG TAB PO PRN (17:18)
[2018-06-13] MEDS ORDERED: PROMETHAZINE HCL 25 MG/ML INJ IVP PRN (17:18)
[2018-06-13] MEDS ORDERED: ALBUTEROL 3 ML DEYVIAL IH PRN (17:18)
[2018-06-13] MEDS ORDERED: diphenhydrAMINE 25 MG CAP PO PRN (17:40)
[2018-06-13] MEDS ORDERED: ONDANSETRON DISINTEGRATING 4 MG TAB PO PRN (17:40)
[2018-06-13] MEDS ORDERED: LACTULOSE 20 GM/30 ML UDCUP PO PRN (17:40)
[2018-06-13] MEDS ORDERED: BISACODYL 10 MG SUPP PR PRN (17:40)
[2018-06-13] MEDS ORDERED: MAGNESIUM HYDROXIDE 30 ML UDCUP PO PRN (17:40)
[2018-06-13] MEDS ORDERED: NS 1,000 ML IV SCH (17:45)
--- NOTE | 2018-06-13 17:49 | SOAPPROG ---
SOAP Progress Note Assessment/Plan: Assessment: 83 yo M sp T9-Iliac fusion with L2 PSO, L1/2, L2/3, L3/4, L5/S1 TLIF Plan: stable to step down overnight PT/OT follow hg/hct SHELIA x 1 please call with neuro changes 06/13/18 17:48 Subjective: + back pain, no leg pain. Objective: Vital Signs Temp Pulse Resp BP Pulse Ox 36.7 C 69 16 118/81 H 93 06/13/18 06:59 06/13/18 06:59 06/13/18 06:59 06/13/18 06:59 06/13/18 06:59 somnolent PERRL, EOMI RAJANI x4 + light touch ICD10 Worksheet Patient Problems: Problems Problem Status Onset Fusion of spine of thoracolumbar region Acute Cellulitis of right hand Acute Right wrist pain Acute - ICD10 Problem Qualifiers (1) Fusion of spine of thoracolumbar region
[2018-06-13 18:48] LABS: PLATELET COUNT 239 10^3/uL (150-400)
[2018-06-13] MEDS: fentaNYL 100 MCG/2 ML INJ IVP PRN ×2 (19:05→19:15)
--- NOTE | 2018-06-13 19:08 | GOP ---
[f rep st] OPERATIVE REPORT DATE OF OPERATION: 06/13/2018 SURGEON: Christopher Quintana MD NEUROSURGEON: Christopher Quintana MD RECORDING CLERK: Karlos Lima PA-C. ANESTHESIA: General endotracheal. 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 Failed conservative care. High risk surgical candidate given the age of 83 years, comorbidities and required surgical intervention. Severe left lower extremity radiculopathy. Multilevel severe neural foraminal encroachment. 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 Failed conservative care. High risk surgical candidate given the age of 83 years, comorbidities and required surgical intervention. Severe left lower extremity radiculopathy. Multilevel severe neural foraminal encroachment. PROCEDURE PERFORMED: 1. Multilevel FAR lateral lumbar decompression with lateral exposures at L2-3, L3-4, and L5-S1. 2. Redo posterior hemilaminectomy and foraminotomy at L4-5. 3. L2 pedicle subtraction osteotomy and reduction of kyphotic deformity. 4. T9 through iliac fixation and posterior lateral fusion with local autograft and bone morphogenic protein. 5. L2-3, L3-4, and L5-S1 posterior/transforaminal lumbar interbody fusion With 2 structural PEEK interbody spacers, local autograft and bone morphogenic protein. 6. Use of intraoperative microscopy, fluoroscopy, and computer volumetric stereotactic navigation with intraoperative neurophysiologic testing. 7. Injection of intrathecal narcotic analgesics and subcutaneous and intramuscular local anesthesia. FINDINGS: ESTIMATED BLOOD LOSS: 500 cc. INDICATIONS: The patient is an 83-year-old man with severe multilevel lumbar degenerative scoliosis and spinal stenosis with lateral recess impingement and a progressive kyphotic deformity with intractable low back pain and left lower extremity radicular discomfort. He has a history of back surgery in the past and has failed extensive conservative care. DESCRIPTION OF PROCEDURE: After informed consent was obtained, the patient was taken to the operating room and placed in the prone position on the Carlo table. The thoracolumbosacral areas were prepped and draped in a sterile fashion. After fluoroscopic localization of the correct levels, the subcutaneous and intramuscular tissues were infiltrated with local anesthesia. A midline linear incision was then created from approximately T9 through S1. This was carried down to the fascial layer, which was incised using monopolar electrocautery and carried in the subperiosteal plane along the spinous processes and lamina bilaterally. Intraoperative fluoroscopy was again utilized to verify the correct levels. Following this, dissection was carried out over the facet joints and transverse processes. There was quite a bit of scar tissue and abnormal anatomy at the L3-4 and L4-5 levels from the prior surgery. The microscope was brought in and left-sided far lateral transpedicular decompressions were performed at the L2-3, L3-4, and L5-S1 levels with a redo posterior hemilaminectomy and foraminotomy at the L4-5 level. Following adequate decompression and meticulous dissection of the scar tissue, the O-arm neuronavigational system was brought in and using computer volumetric stereotactic navigation, pedicle screws were placed from T9 through S1 bilaterally as well as iliac fixation bilaterally using the critical image guidance. All screws were tested neurophysiologically with monopolar electrostimulation and interpretation of the potentials by the surgeon. Only 1 screw stimulated significantly low and that was the left L4 screw which we performed repeat 3D navigation images on that area and the screw did appear to be slightly encroaching the medial edge of the pedicle. This was very slight and was questionable but given the low stimulation threshold, I felt that it was in the best interest to eventually remove that screw after the interbody fusions were performed. The serial rods were then placed first at L5-S1, then at L3-4, then at L2-3, during which time each level was gently distracted across the interspace and complete diskectomies were performed at each level with preparation of the endplates and placement of 2 structural PEEK interbody spacers, local autograft and bone morphogenic protein at L1-2, L2-3, L3-4, and L5-S1 for posterior/transforaminal lumbar interbody fusions at those levels. At the L1-2 level, only 1 graft was placed anteriorly and following this, the L2 pedicle screws were removed bilaterally and a pedicle subtraction osteotomy was then performed by carefully rongeuring and drilling out the bilateral L2 pedicles all the way into the vertebral body in a wedge-shaped fashion. The posterior cortex of the vertebral body was also pushed inward into the vertebral body away from the dura and in this fashion, a wedge-shaped deformity was created along with the diskectomy. The structural graft was placed anteriorly though as to function as a fulcrum. After removing the distraction rods, the kyphotic deformity had been reduced significantly. After removing the L4 screw on the left, low stimulation threshold and copiously irrigating the wound, the rods were then contoured and placed and secured from T9 through S1 and the iliac fixation. Compression was gently placed across each of the interbody fusion levels including the pedicle subtraction osteotomy level and again, there was a significant reduction of the kyphotic deformity. On the left, the distance between the L1 and L3 screws changed from 57 initially to 36 for a 21 mm decrease and on the right, it went from 47 down to 31 with a 16 mm decrease. This took into consideration the prior angulature of the spine and essentially a tri-planar osteotomy was performed with appropriate realignment in the sagittal and coronal planes. Following this, the wound was copiously irrigated with antibiotic irrigation. Meticulous hemostasis was achieved. 200 mcg of Duramorph along with 50 mcg of fentanyl were injected intrathecally for postoperative pain control. The remaining lamina and facet joints and transverse processes were extensively decorticated from T9 through the sacrum and the residual local autograft from the osteotomy and facetectomies along with bone morphogenic protein was placed out laterally for a posterolateral fusion from T9 through S1. An axial device was then placed at the L5-S1 level for added support. The wound was again copiously irrigated with antibiotic irrigation and meticulous hemostasis was achieved. A drain was placed and after fluoroscopic verification of good position of the screws, rods , and interbody spacers, and appropriate alignment, the wound was closed in a layered fashion using interrupted Vicryl sutures followed by Steri-Strips on the skin. COMPLICATIONS: None. DISPOSITION: The patient is currently in the process of being repositioned for extubation. Note that the cottonoid count was off so that we are obtaining a flat plate to verify there is no cottonoid in the patient prior to waking him up. /[id number]/MODL MTDD
[2018-06-13] MEDS: SENNOSIDES/DOCUSATE SODIUM TAB PO SCH (21:27)
[2018-06-13] MEDS: FAMOTIDINE 20 MG TAB PO SCH (21:27)
[2018-06-13] MEDS: oxyCODONE IR 5 MG TAB PO PRN ×2 (21:28→21:39)
[2018-06-13] MEDS: METHOCARBAMOL 750 MG TAB PO PRN (21:28)
[2018-06-13] MEDS: POLYETHYLENE GLYCOL 3350 17 GM PKT PO SCH (21:52)
[2018-06-14] MEDS: ceFAZolin 2 GM/DEXTROSE 100 ML IV SCH ×2 (00:21→08:33)
[2018-06-14] MEDS ORDERED: ATROPINE SULFATE 1 MG/10 ML SYR ONE (00:34)
[2018-06-14 05:48] LABS: PLATELET COUNT 170 10^3/uL (150-400)
--- NOTE | 2018-06-14 06:26 | PDMN ---
Medical Necessity Medical necessity: [facility] S820 lumbar fusion 3 days INPT only- OP: L1/2,L2/ 3,L3/4,L5/S1 TLIF- lum lami, L3 posterior fusion w raymundo.... AUTH# [id number] APPROVED 3 DAYS INPATIENT
--- NOTE | 2018-06-14 08:10 | SOAPPROG ---
SOAP Progress Note Assessment/Plan: Assessment: 83 yo M POD #1 T9-Iliac fusion with L2 PSO, L1/2, L2/3, L3/4, L5/S1 TLIF Plan: stable and doing well overall dementia, will follow for now in step down, can transfer to floor PT/OT follow hg/hct, anemia from blood loss in surgery, check CBC in am SHELIA x 1 x-rays pending please call with neuro changes discussed with Dr Pinto 06/13/18 17:48 06/14/18 08:08 Subjective: + back pain, no leg pain, no weakness. Objective: Vital Signs Temp Pulse Resp BP Pulse Ox 36.3 C 74 10 L 96/61 L 96 06/13/18 19:40 06/14/18 00:00 06/14/18 00:00 06/14/18 00:00 06/14/18 00:00 Laboratory Results 06/14/18 05:15 06/14/18 05:15 06/13/18 06/14/18 06/15/18 05:59 05:59 05:59 Intake Total 3300 Output Total 1640 Balance 1660 Awake, alert, oriented to name, place, month, +FC PERRL EOMI, no facial droop 5/5 + light touch C/D/I ICD10 Worksheet Patient Problems: Problems Problem Status Onset Fusion of spine of thoracolumbar region Acute Cellulitis of right hand Acute Right wrist pain Acute - ICD10 Problem Qualifiers (1) Fusion of spine of thoracolumbar region
[2018-06-14] MEDS: FAMOTIDINE 20 MG TAB PO SCH ×2 (08:33→20:40)
[2018-06-14] MEDS: amLODIPine BESYLATE 5 MG TAB PO SCH (08:33)
[2018-06-14] MEDS: PANTOPRAZOLE SODIUM 40 MG TAB PO SCH (08:33)
[2018-06-14] MEDS: oxyCODONE IR 5 MG TAB PO PRN ×3 (08:33→20:45)
[2018-06-14] MEDS: METHOCARBAMOL 750 MG TAB PO PRN ×3 (08:33→23:37)
[2018-06-14] MEDS: SENNOSIDES/DOCUSATE SODIUM TAB PO SCH ×2 (08:33→20:41)
[2018-06-14] MEDS: POLYETHYLENE GLYCOL 3350 17 GM PKT PO SCH ×3 (08:33→20:41)
[2018-06-15] MEDS: METHOCARBAMOL 750 MG TAB PO PRN ×2 (06:16→17:20)
[2018-06-15] MEDS: oxyCODONE IR 5 MG TAB PO PRN ×3 (06:16→15:12)
--- NOTE | 2018-06-15 08:00 | SOAPPROG ---
SOJAVON Progress Note Assessment/Plan: Assessment: 83 yo M POD #2 T9-Iliac fusion with L2 PSO, L1/2, L2/3, L3/4, L5/S1 TLIF Plan: stable and doing well overall dementia, will follow for now PT/OT follow hg/hct, anemia from blood loss in surgery, check CBC in am SHELIA x 1 x-rays show good position of hardware will need inpatient rehab, DC systems planner to evaluate placement options please call with neuro changes discussed with Dr Pinto 06/13/18 17:48 06/14/18 08:08 06/15/18 07:59 Subjective: + back pain, no leg pain, no weakness. Objective: Vital Signs Temp Pulse Resp BP Pulse Ox 36.6 C 92 16 119/67 97 06/15/18 07:33 06/15/18 07:33 06/15/18 07:33 06/15/18 07:33 06/15/18 07:33 Laboratory Results 06/14/18 05:15 06/14/18 05:15 06/14/18 06/15/18 06/16/18 05:59 05:59 05:59 Intake Total 3300 100 Output Total 1640 2245 Balance 1660 -2145 AAOX3, +FC PERRL, EOMI, no facial droop RAJANI x 4 + light touch C/D/I ICD10 Worksheet Patient Problems: Problems Problem Status Onset Fusion of spine of thoracolumbar region Acute Cellulitis of right hand Acute Right wrist pain Acute - ICD10 Problem Qualifiers (1) Fusion of spine of thoracolumbar region
[2018-06-15] MEDS: ENOXAPARIN 40 MG/0.4 ML SYR SC SCH (08:40)
[2018-06-15] MEDS: FAMOTIDINE 20 MG TAB PO SCH ×2 (08:40→21:19)
[2018-06-15] MEDS: amLODIPine BESYLATE 5 MG TAB PO SCH (08:40)
[2018-06-15] MEDS: SENNOSIDES/DOCUSATE SODIUM TAB PO SCH ×2 (08:40→21:19)
[2018-06-15] MEDS: PANTOPRAZOLE SODIUM 40 MG TAB PO SCH (08:40)
[2018-06-15] MEDS: POLYETHYLENE GLYCOL 3350 17 GM PKT PO SCH ×3 (08:41→21:20)
[2018-06-15] MEDS: DIAZEPAM 5 MG TAB PO PRN ×2 (11:29→21:32)
[2018-06-15] MEDS: ACETAMINOPHEN 500 MG TAB PO SCH ×2 (15:12→21:19)
[2018-06-15] MEDS: LORazepam 1 MG TAB PO PRN ×2 (15:12→21:19)
--- NOTE | 2018-06-15 15:45 | ASMTCMCOM ---
CM Note CM Note Notes: Pt with dementia had planned back surgery. Pt was just at [facility] May 2018 and he d/c to former spouse Pat's home with [facility]. PT rec SNF, OT rec HHC/24/hr supervision/SNF. Pt is confused and agitated, this CM spoke with Pat who wants pt to go to SNF. While Pat would like a [facility] there is no current option since [facility] has no beds, [facility] and [facility] do not take [place], and Pat does not want to consider [facility]. Sharyn Arias is still reviewing pt, pt is accepted at both [facility] and [facility] SNFs. CM to follow for SNF choice so insurance auth can be obtained. D/c plan of care: SNF Date Signed: 06/15/2018 03:44 PM Electronically Signed By:CHERI Cerna
[2018-06-16] MEDS: METHOCARBAMOL 750 MG TAB PO PRN ×2 (02:22→10:13)
[2018-06-16] MEDS: LORazepam 1 MG TAB PO PRN (02:22)
[2018-06-16] MEDS: oxyCODONE IR 5 MG TAB PO PRN ×3 (06:04→22:17)
[2018-06-16] MEDS: ACETAMINOPHEN 500 MG TAB PO SCH ×3 (06:14→22:17)
--- NOTE | 2018-06-16 08:04 | NEUSURGPN ---
Assessment/Plan: Assessment/Plan: Assessment: 83 yo M POD #3 T9-Iliac fusion with L2 PSO, L1/2, L2/3, L3/4, L5/S1 TLIF Plan: Neuro: Overall doing ok, had a better night last night but yesterday had some problems with agitation. He did pull out his drain last night as well. 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 Needs to have a BM. Denies any pain in legs. Pain well managed this morning O: Somnolent but arousable Following commands BLE 5/5 Sensation intact to lt touch SHELIA X1- pulled out by patient, site clean Incision c/d/i- dressed Catheter Insertion Date: 06/14/18 - Physician Discussed Patient with DrFrancesca: Lilian Neurosurgery Physical Exam - Vitals, I&O, Labs I and O 06/15/18 06/16/18 06/17/18 05:59 05:59 05:59 Intake Total 100 1000 Output Total 2245 2150 Balance -2145 -1150 Intake: Oral (ml) 100 1000 Output: Urine (ml) 1650 2000 Catheter 1650 650 Toilet 0 Urinal 0 1350 SHELIA Drain Output (ml) 595 150 #1 Posterior Back Carlo 595 150 Holcomb Other: Intake Quantity Yes Sufficient Output Comment Catheter st cath Toilet unable to void in toilet Urinal unable to void in urinal Number of Voids Urinal 0 Bladder Scan Volume (ml) Catheter 492 Toilet 550 Urinal 601 Vital Signs Temp Pulse Resp BP Pulse Ox 36.9 C 87 14 106/65 93 06/15/18 23:51 06/15/18 23:51 06/15/18 23:51 06/15/18 23:51 06/15/18 23:51 Laboratory Results 06/15/18 08:46 06/14/18 05:15 ICD10 Worksheet Patient Problems: Problems Problem Status Onset Fusion of spine of thoracolumbar region Acute Cellulitis of right hand Acute Right wrist pain Acute
[2018-06-16] MEDS: amLODIPine BESYLATE 5 MG TAB PO SCH (10:12)
[2018-06-16] MEDS: SENNOSIDES/DOCUSATE SODIUM TAB PO SCH ×2 (10:13→22:18)
[2018-06-16] MEDS: PANTOPRAZOLE SODIUM 40 MG TAB PO SCH (10:13)
[2018-06-16] MEDS: FAMOTIDINE 20 MG TAB PO SCH ×2 (10:13→22:18)
[2018-06-16] MEDS: ENOXAPARIN 40 MG/0.4 ML SYR SC SCH (10:14)
[2018-06-16] MEDS: POLYETHYLENE GLYCOL 3350 17 GM PKT PO SCH ×3 (10:15→22:19)
--- NOTE | 2018-06-16 13:24 | ASMTCMCOM ---
CM Note CM Note Notes: Pt is accepted at [facility], [facility] and [facility] SNFs. Pat chooses [facility], updates sent in [employer] so they can pursue insurance auth. D/c plan of care: [facility] SNF when ins auth obtained Date Signed: 06/16/2018 01:23 PM Electronically Signed By:CHERI Cerna
[2018-06-17] MEDS: ACETAMINOPHEN 500 MG TAB PO SCH ×3 (06:26→22:22)
[2018-06-17] MEDS: oxyCODONE IR 5 MG TAB PO PRN ×3 (06:34→17:23)
[2018-06-17] MEDS: ENOXAPARIN 40 MG/0.4 ML SYR SC SCH (08:02)
[2018-06-17] MEDS: FAMOTIDINE 20 MG TAB PO SCH ×2 (08:03→22:16)
[2018-06-17] MEDS: amLODIPine BESYLATE 5 MG TAB PO SCH (08:03)
[2018-06-17] MEDS: PANTOPRAZOLE SODIUM 40 MG TAB PO SCH (08:03)
[2018-06-17] MEDS: SENNOSIDES/DOCUSATE SODIUM TAB PO SCH ×2 (08:03→22:16)
[2018-06-17] MEDS: POLYETHYLENE GLYCOL 3350 17 GM PKT PO SCH ×4 (08:03→22:16)
--- NOTE | 2018-06-17 08:52 | NEUSURGPN ---
Date of Surgery: 06/13/18 Post Op Day: 4 Assessment/Plan: 83 yo M POD #4 T9-Iliac fusion with L2 PSO, L1/2, L2/3, L3/4, L5/S1 TLIF Plan: Neuro: Overall doing ok, Some confusion this morning. PT/OT SHELIA pulled out by patient x-rays show good position of hardware trial of removing irving this morning, start Flomax will need rehab, DC event planner to evaluate placement options please call with neuro changes discussed with Dr Pinto Subjective: Having back pain. Objective: Awake. Alert. PERRL. EOMI Strength full at 5/5 Sensation intact Catheter Insertion Date: 06/14/18 - Physician Discussed Patient with : Lilian Neurosurgery Physical Exam - Vitals, I&O, Labs I and O 06/16/18 06/17/18 06/18/18 05:59 05:59 05:59 Intake Total 1000 Output Total 2150 1325 550 Balance -1150 -1325 -550 Intake: Oral (ml) 1000 Output: Urine (ml) 2000 1325 550 Catheter 650 1325 550 Urinal 1350 SHELIA Drain Output (ml) 150 #1 Posterior Back Carlo 150 Holcomb Other: Intake Quantity Yes Yes Sufficient Vital Signs Temp Pulse Resp BP Pulse Ox 36.3 C 68 15 114/71 94 06/17/18 08:00 06/17/18 08:00 06/17/18 08:00 06/17/18 08:03 06/17/18 08:00 Laboratory Results 06/15/18 08:46 06/14/18 05:15 ICD10 Worksheet Patient Problems: Problems Problem Status Onset Fusion of spine of thoracolumbar region Acute Cellulitis of right hand Acute Right wrist pain Acute
[2018-06-17] MEDS: TAMSULOSIN HCL 0.4 MG CAP PO SCH (09:56)
[2018-06-17] MEDS: METHOCARBAMOL 750 MG TAB PO PRN (15:41)
--- NOTE | 2018-06-17 16:56 | ASMTCMCOM ---
CM Note CM Note Notes: Insurance authorization for [facility] is not in by close of business. This means pt may not d/c until Wednesday when the insurance company opens again. Pt updated and voicemail left for pt SABA Pablo. D/c plan of care: [facility] when insurance auth is obtained Date Signed: 06/17/2018 04:56 PM Electronically Signed By:CHERI Cerna
[2018-06-17] MEDS: LORazepam 1 MG TAB PO PRN (17:26)
[2018-06-18] MEDS: ACETAMINOPHEN 500 MG TAB PO SCH ×3 (06:29→21:12)
[2018-06-18] MEDS: POLYETHYLENE GLYCOL 3350 17 GM PKT PO SCH ×3 (08:37→20:59)
[2018-06-18] MEDS: TAMSULOSIN HCL 0.4 MG CAP PO SCH (08:37)
[2018-06-18] MEDS: amLODIPine BESYLATE 5 MG TAB PO SCH (08:37)
[2018-06-18] MEDS: ENOXAPARIN 40 MG/0.4 ML SYR SC SCH (08:37)
[2018-06-18] MEDS: LORazepam 1 MG TAB PO PRN ×2 (08:37→22:20)
[2018-06-18] MEDS: PANTOPRAZOLE SODIUM 40 MG TAB PO SCH (08:37)
[2018-06-18] MEDS: FAMOTIDINE 20 MG TAB PO SCH ×2 (08:37→20:59)
[2018-06-18] MEDS: SENNOSIDES/DOCUSATE SODIUM TAB PO SCH ×2 (08:37→20:59)
[2018-06-18] MEDS: oxyCODONE IR 5 MG TAB PO PRN (09:18)
--- NOTE | 2018-06-18 11:27 | ASMTCMCOM ---
CM Note CM Note Notes: [facility] requested updated PT/OT evals. They were sent using [employer]. D/C Plan: [facility] Date Signed: 06/18/2018 11:27 AM Electronically Signed By:Destiny Lara
--- NOTE | 2018-06-18 13:43 | NEUSURGPN ---
Assessment/Plan: 83 yo M POD #5 T9-Iliac fusion with L2 PSO, L1/2, L2/3, L3/4, L5/S1 TLIF. Pt with some post operative agitation and encephalopathy that is improving, he does have some baseline dementia. He also is having concurrent urinary retention. Post operative XRays with good position of hardware. Pt also reported to have a fall after being seen this am, no injury. Plan: PT/OT brace when OOB agitation, dementia and fall -safety precautions in place by nursing team, minimize sedating medications that may increase his agitation/dementia Urinary retention- continue flomax, Cathed this am, if retention persists will replace irving this afternoon. DVT ppx: MEG's, SCD's, Lovenox when OOB. Dispo: will need rehab, DC billing adjudicator to evaluate placement options, likely to SNF please call with neuro changes discussed with Dr Pinto Subjective: no complaints today. legs feel OK, no weakness, numbness, tingling. Objective: NAD Alert, oriented to self, place, relative time speech clear and fluent Ken MAEx4, 5/= SILT INcision dressed, CDI. Catheter Insertion Date: 06/14/18 - Physician Discussed Patient with : Lilian Neurosurgery Physical Exam - Vitals, I&O, Labs I and O 06/17/18 06/18/18 06/19/18 05:59 05:59 05:59 Intake Total 240 Output Total 1325 1450 550 Balance -1325 -1210 -550 Intake: Oral (ml) 240 Output: Urine (ml) 1325 1450 550 Bedside Commode 225 Catheter 1325 850 550 Urinal 375 Other: Intake Quantity Yes Yes Sufficient Number of Voids Catheter 1 Toilet 1 Urinal 2 Number of Stools Bedside Commode 1 Toilet 1 Bladder Scan Volume (ml) Bedside Commode 242 Urinal 217 Post Void Residual Scan Volume (ml) Catheter 300 50 Vital Signs Temp Pulse Resp BP Pulse Ox 36.6 C 98 18 127/83 H 94 06/18/18 08:00 06/18/18 08:00 06/18/18 08:00 06/18/18 08:37 06/18/18 08:00 Laboratory Results 06/15/18 08:46 06/14/18 05:15 ICD10 Worksheet Patient Problems: Problems Problem Status Onset Fusion of spine of thoracolumbar region Acute Cellulitis of right hand Acute Right wrist pain Acute
[2018-06-18] MEDS ORDERED: NS 500 ML IV ONE ×2 (17:30→20:00)
[2018-06-18] MEDS: METHOCARBAMOL 750 MG TAB PO PRN (23:12)
[2018-06-19] MEDS: ACETAMINOPHEN 500 MG TAB PO SCH ×3 (05:25→22:32)
[2018-06-19] MEDS: LORazepam 1 MG TAB PO PRN (07:16)
[2018-06-19] MEDS: FAMOTIDINE 20 MG TAB PO SCH ×2 (07:56→19:45)
[2018-06-19] MEDS: PANTOPRAZOLE SODIUM 40 MG TAB PO SCH (07:56)
[2018-06-19] MEDS: TAMSULOSIN HCL 0.4 MG CAP PO SCH (07:56)
[2018-06-19] MEDS: ENOXAPARIN 40 MG/0.4 ML SYR SC SCH (07:57)
--- NOTE | 2018-06-19 08:10 | NEUSURGPN ---
Assessment/Plan: 83 yo M POD #5 T9-Iliac fusion with L2 PSO, L1/2, L2/3, L3/4, L5/S1 TLIF. Pt with some post operative agitation and encephalopathy that is improving, he does have some baseline dementia. He also is having concurrent urinary retention. Post operative XRays with good position of hardware. Pt with continued urinary retention, irving replaced last night, labs this morning show low K, Na. Agitation has increased. Plan: PT/OT brace when OOB pain control-pt doesn't complain of pain. agitation, dementia and fall -safety precautions in place by nursing team, minimize sedating medications that may increase his agitation/dementia Urinary retention- continue flomax, failed to urinate yesterday irving replaced, likely have follow up with urology as outpatient Hypokalemia/hyponatremia/agitation: will consult hospitalist today to manage repletion and additional med suggestions for agitation. DVT ppx: MEG's, SCD's, Lovenox when OOB. Dispo: will need rehab, DC office workforce planner to evaluate placement options, likely to SNF please call with neuro changes discussed with Dr Pinto Subjective: very agitated this am, wants into chair, per nursing, did not sleep last night. He has no back pain. Objective: Agitated Alert, oriented to self, relative time, not to place speech clear and fluent Ken [email or web address], 5= SILT INcision dressed, CDI. Catheter Insertion Date: 06/14/18 - Physician Discussed Patient with : Lilian Neurosurgery Physical Exam - Vitals, I&O, Labs I and O 06/18/18 06/19/18 06/20/18 05:59 05:59 05:59 Intake Total 240 1304 Output Total 1450 1725 Balance -1210 -421 Intake: Oral (ml) 240 IV Intake (ml) 500 IV Infused (ml) 804 Ns 500 ml @ As Directed 804 IV ONCE ONE Rx#: [id number] Output: Urine (ml) 1450 1725 Bedside Commode 225 Catheter 850 1725 Urinal 375 Other: Intake Quantity Yes Sufficient Number of Voids Catheter 1 1 Toilet 1 Urinal 2 Number of Stools Bedside Commode 1 Toilet 1 Bladder Scan Volume (ml) Bedside Commode 242 306 Urinal 217 Post Void Residual Scan Volume (ml) Catheter 300 50 Vital Signs Temp Pulse Resp BP Pulse Ox 36.4 C 89 14 126/66 H 94 06/19/18 07:11 06/19/18 07:11 06/19/18 07:11 06/19/18 07:11 06/19/18 07:11 Laboratory Results 06/15/18 08:46 06/19/18 04:20 ICD10 Worksheet Patient Problems: Problems Problem Status Onset Fusion of spine of thoracolumbar region Acute Cellulitis of right hand Acute Right wrist pain Acute
[2018-06-19] MEDS: SENNOSIDES/DOCUSATE SODIUM TAB PO SCH ×2 (09:12→19:45)
[2018-06-19] MEDS: POLYETHYLENE GLYCOL 3350 17 GM PKT PO SCH ×3 (09:12→23:20)
[2018-06-19] MEDS ORDERED: POTASSIUM CL 20 MEQ/15 ML UDCUP PO ONE (10:48)
[2018-06-19] MEDS: amLODIPine BESYLATE 5 MG TAB PO SCH (10:51)
[2018-06-19] MEDS ORDERED: NS W/ 20 KCl/L 1,000 ML IV SCH (11:00)
[2018-06-19] MEDS ORDERED: POTASSIUM Cl (KCl) 20 MEQ in 1/2 NS 1,000 ML IV SCH (11:00)
[2018-06-19] MEDS: HALOPERIDOL 2 MG TAB PO PRN (12:40)
[2018-06-19] MEDS: oxyCODONE IR 5 MG TAB PO PRN ×2 (16:42→22:34)
--- NOTE | 2018-06-19 17:17 | GCON ---
[f rep st] CONSULTATION CONSULTATION DATE OF CONSULTATION: 06/19/2018 Mr. Acosta is a pleasant 83-year-old gentleman with history of dementia, mild, who is postop day 6 f rom lumbar spine surgery by Dr. Quintana. I am asked to see him today for electrolyte abnormali ties and confusion and agitation. On the , the patient underwent multilevel decompression at L2, L3, L4, L5. See neurosurgery note s for further details. He had been doing relatively well postoperative other than some urinary reten tion. In the last couple of days has become more agitated. His sodium has been steady in the low 13 0s which is his baseline from prior admission. He has a Turner catheter for urinary retention. In sp eaking with the patient, it sounds like he has a history of urinary retention that is not quite as se david. He has received in the last 24 hours at least a mg of Ativan, IV morphine, methocarbamol. He has not received Benadryl. When I speak to the patient, he is alert and oriented and relatively calm. He describes pain. He is not having nausea, vomiting, or diarrhea. REVIEW OF SYSTEMS: Complete 10-point review of systems conducted and negative except as noted in the HPI. PAST MEDICAL HISTORY: Recent cellulitis, suspected gout, probable BPH, hypertension, lumbar spine di sease, arthritis. SOCIAL HISTORY: He is intermittently homeless, staying in some hotels. No tobacco. He is on no med icines recently. ALLERGIES: Codeine. FAMILY HISTORY: Parents . PHYSICAL EXAM: ORTHOSTATIC VITAL SIGNS: Yesterday, his pulse was 89-105, temp 36, blood pressure 12 6/66. This morning, 14 times per minute, 94% on room air. GENERAL: No acute distress. HEENT: Scl erae anicteric. Oropharynx clear. Mucous membranes moist. NECK: Supple. No lymphadenopathy or JV D. LUNGS: Clear to auscultation bilaterally. HEART: S1, S2. ABDOMEN: Soft, nontender, nondisten ded. LOWER EXTREMITIES: No edema. Calves are nontender. SKIN: Without rash. NEUROLOGIC: Nonfoc al. There is a Turner in place. LABS: CBC has not been drawn in a number of days. Sodium 131, potassium 3.3, chloride 103, bicarb 2 2, BUN 9, creatinine 0.6, glucose 109, calcium slightly low at 7.8. During a recent admission, he had a nonreactive RPR and a negative HIV test. I have discussed the case with GABRIELLE Adams the emergency department. ASSESSMENT/PLAN: An 83-year-old gentleman with postoperative delirium. 1. The patient has a toxic metabolic encephalopathy, likely multifactorial surgery Turner catheter, b ut importantly a couple of psychoactive medications that could probably be avoided. I have taken the liberty of discontinuing his Benadryl, his muscle relaxants and benzodiazepines. I have reduced his morphine. He is currently on scheduled Tylenol. I will repeat a CBC tomorrow to rule out blood los s as a cause. 2. He has been written for some trazodone at night, which I think is a reasonable choice. I have al so written him for some p.r.n. Haldol for agitation. 3. Pain. Continue lower dose morphine and oxycodone. I recommend NSAIDs when safe, in addition to the scheduled Tylenol that you have already started when felt appropriate from a neurosurgical perspe ctive. 4. Hyponatremia. This is pretty mild and really at his recent baseline, so we will just follow. 5. Hypokalemia. I have given him some oral potassium. 6. Hypovolemia. I think the patient is clinically a bit dry. I have held his antihypertensives and will give him a liter of IV fluids. 7. Benign prostatic hypertrophy. Continue Flomax. If the patient is here for a couple of more days , it may be reasonable to remove his Turner for a trial of spontaneous voiding. Prophylaxis DVT, prop hylaxis per Neurosurgery. He is currently on enoxaparin with which I agree. 8. Constipation. He is getting daily MiraLAX that is appropriate. Thank you for this consultation. Hospital Medicine will follow. /[id number]/MODL
[2018-06-19] MEDS: traZODone 50 MG TAB PO SCH (19:45)
[2018-06-20] MEDS: oxyCODONE IR 5 MG TAB PO PRN ×4 (02:38→17:19)
[2018-06-20] MEDS: HALOPERIDOL 2 MG TAB PO PRN (02:39)
[2018-06-20] MEDS: ACETAMINOPHEN 500 MG TAB PO SCH ×3 (07:12→22:27)
[2018-06-20] MEDS: POLYETHYLENE GLYCOL 3350 17 GM PKT PO SCH ×3 (07:43→20:32)
[2018-06-20] MEDS: FAMOTIDINE 20 MG TAB PO SCH ×2 (08:31→20:30)
[2018-06-20] MEDS: ENOXAPARIN 40 MG/0.4 ML SYR SC SCH (08:31)
[2018-06-20] MEDS: PANTOPRAZOLE SODIUM 40 MG TAB PO SCH (08:31)
[2018-06-20] MEDS: TAMSULOSIN HCL 0.4 MG CAP PO SCH (08:31)
[2018-06-20] MEDS: SENNOSIDES/DOCUSATE SODIUM TAB PO SCH ×2 (08:42→20:33)
--- NOTE | 2018-06-20 09:24 | NEUSURGPN ---
Assessment/Plan: 83 yo M POD #7 T9-Iliac fusion with L2 PSO, L1/2, L2/3, L3/4, L5/S1 TLIF. Pt with some post operative agitation and encephalopathy that is improving, he does have some baseline dementia. Post op urinary retention PLan PT/OT brace when OOB pain control-pt doesn't complain of pain. agitation, dementia and fall -safety precautions in place by nursing team, minimize sedating medications that may increase his agitation/dementia Urinary retention- continue flomax, failed to urinate irving replaced Wednesday, continue Irving and will need urology follow up as outpatient Post operative X-rays with good position of hardware. DVT ppx: MEG's, SCD's, Lovenox when OOB. Appreciated Medicine involvement and consultation, can work towards transfer once bed available and cleared by medicine please call with neuro changes discussed with Dr Pinto Subjective: States he would like to leave the hospital. Denies any focal back or leg pain Objective: NAD Alert and oriented to person and place but not time. MAEX4 5/5 and equal in BUE and BLE. Incision c/d/i. Catheter Insertion Date: 06/14/18 - Physician Discussed Patient with : [facility] Physical Exam - Vitals, I&O, Labs I and O 06/19/18 06/20/18 06/21/18 05:59 05:59 05:59 Intake Total 1304 745 500 Output Total 1725 1999 275 Balance -421 -1255 225 Intake: Oral (ml) 745 500 IV Intake (ml) 500 IV Infused (ml) 804 Ns 500 ml @ As Directed 804 IV ONCE ONE Rx#: [id number] Output: Urine (ml) 1725 1999 275 Catheter 1721999 Other: Number of Voids Catheter 1 1 Number of Stools Toilet 1 1 Bladder Scan Volume (ml) Bedside Commode 306 Post Void Residual Scan Volume (ml) Catheter 50 Vital Signs Temp Pulse Resp BP Pulse Ox 37.0 C 87 23 H 187/80 H 98 06/20/18 07:54 06/20/18 07:54 06/20/18 07:54 06/20/18 07:54 06/20/18 07:54 Laboratory Results 06/20/18 04:19 06/20/18 04:19 ICD10 Worksheet Patient Problems: Problems Problem Status Onset Fusion of spine of thoracolumbar region Acute Cellulitis of right hand Acute Right wrist pain Acute
--- NOTE | 2018-06-20 14:38 | HOSPPROG ---
Hospitalist Progress Note Assessment/Plan: 83 yo M w spine surgery and toxic metabolic encephalopathy encephalopathy: improved multifactorial continue to limit meds hyponatremia: mild, follow proph: pre neurosurgery htn: amlodipine Subjective: alert. states pain well controlled Objective: Vital Signs Temp Pulse Resp BP Pulse Ox 36.4 C 87 20 95/74 L 90 L 06/20/18 12:23 06/20/18 12:23 06/20/18 12:23 06/20/18 12:23 06/20/18 12:23 Laboratory Results 06/20/18 04:19 06/20/18 04:19 06/19/18 06/20/18 06/21/18 05:59 05:59 05:59 Intake Total 3720 973 7647 Output Total 1725 6190 450 Balance -421 1254 625 - Physical Exam Constitutional: no apparent distress, appears nourished Eyes: PERRL, anicteric sclera Ears, Nose, Mouth, Throat: moist mucous membranes, hearing normal Cardiovascular: regular rate and rhythym, no murmur, rub, or gallop Respiratory: no respiratory distress, no rales or rhonchi Gastrointestinal: normoactive bowel sounds, soft, non-tender abdomen Genitourinary: No irving in urethra Skin: warm Musculoskeletal: full muscle strength Neurologic: No AAOx3 ICD10 Worksheet Patient Problems: Problems Problem Status Onset Fusion of spine of thoracolumbar region Acute Cellulitis of right hand Acute Right wrist pain Acute
--- NOTE | 2018-06-20 16:43 | ASMTCMCOM ---
CM Note CM Note Notes: [facility] denied pt today due to pt being in restraints. CM spoke with RN and charge nurse who reports restraints are dc'd. CM attempted to discuss with pt which other facility he would like to pursue. Accepted at [facility] and [facility], they would need to submit for insurance auth. CM to follow. Plan: [facility] or [facility] pending auth/ pt choice. Date Signed: 06/20/2018 04:43 PM Electronically Signed By:AARON Lainez
[2018-06-20] MEDS: traZODone 50 MG TAB PO SCH (20:30)
[2018-06-21] MEDS: oxyCODONE IR 5 MG TAB PO PRN ×4 (00:07→18:03)
[2018-06-21] MEDS: ACETAMINOPHEN 500 MG TAB PO SCH ×3 (06:26→22:20)
--- NOTE | 2018-06-21 09:32 | NEUSURGPN ---
Assessment/Plan: 83 yo M POD #8 T9-Iliac fusion with L2 PSO, L1/2, L2/3, L3/4, L5/S1 TLIF. Pt with some post operative agitation and encephalopathy that is improving, he does have some baseline dementia. Post op urinary retention Neuro stable today Plan PT/OT brace when OOB pain control-pt doesn't complain of pain. agitation, dementia and fall -safety precautions in place by nursing team, minimize sedating medications that may increase his agitation/dementia Urinary retention- continue flomax, failed to urinate irving replaced Wednesday, continue Irving and will need urology follow up as outpatient Hyponatremia- Will recheck NA today Post operative X-rays with good position of hardware. DVT ppx: MEG's, SCD's, Lovenox when OOB. Appreciated Medicine involvement and consultation, can work towards transfer once bed available and cleared by medicine please call with neuro changes discussed with Dr Pinto Subjective: low back pain. Some bilateral leg numbness that the patient notes as stable Objective: NAD Alert and oriented to person and place but not time. MAEX4 5/5 and equal in BUE and BLE. Incision c/d/i. Catheter Insertion Date: 06/14/18 - Physician Discussed Patient with Dr.: [facility] Physical Exam - Vitals, I&O, Labs I and O 06/20/18 06/21/18 06/22/18 05:59 05:59 05:59 Intake Total 745 1875 Output Total 1999 1175 Balance -1255 700 Intake: Oral (ml) 745 1875 Output: Urine (ml) 1999 1175 Catheter 1999 1175 Other: Number of Voids Catheter 1 Number of Stools Toilet 1 Vital Signs Temp Pulse Resp BP Pulse Ox 36.9 C 77 14 104/64 92 06/21/18 08:00 06/21/18 08:00 06/21/18 08:00 06/21/18 08:00 06/21/18 08:00 Laboratory Results 06/20/18 04:19 06/20/18 04:19 ICD10 Worksheet Patient Problems: Problems Problem Status Onset Fusion of spine of thoracolumbar region Acute Cellulitis of right hand Acute Right wrist pain Acute
[2018-06-21] MEDS: ENOXAPARIN 40 MG/0.4 ML SYR SC SCH (10:19)
[2018-06-21] MEDS: SENNOSIDES/DOCUSATE SODIUM TAB PO SCH ×2 (10:20→19:59)
[2018-06-21] MEDS: FAMOTIDINE 20 MG TAB PO SCH ×2 (10:20→20:00)
[2018-06-21] MEDS: POLYETHYLENE GLYCOL 3350 17 GM PKT PO SCH ×3 (10:20→20:02)
[2018-06-21] MEDS: TAMSULOSIN HCL 0.4 MG CAP PO SCH (10:20)
[2018-06-21] MEDS: PANTOPRAZOLE SODIUM 40 MG TAB PO SCH (10:20)
[2018-06-21] MEDS: HALOPERIDOL 2 MG TAB PO PRN ×2 (11:33→20:00)
--- NOTE | 2018-06-21 14:52 | HOSPPROG ---
Hospitalist Progress Note Assessment/Plan: 83 yo M w spine surgery and toxic metabolic encephalopathy. First encounter, chart reviewed. *encephalopathy, metabolic -multifactorial -continue to limit meds -he is alert and conversant today hyponatremia -drop today -will check urine studies *s/p T9-iliac fusion w L2 PSO, L1/2, L2/3, L3/4, L5/S1 TLIF -pod #8 -added prn Robaxin for pain *urinary retention -Flomax, has a irving in *HTN -amlodipine *anemia -post op setting *dvt prophylaxis: LMWH Subjective: Nikolas said he is feeling pretty good today, has no specific complaints. Objective: Vital Signs Temp Pulse Resp BP Pulse Ox 36.9 C 77 14 104/64 92 06/21/18 08:00 06/21/18 08:00 06/21/18 08:00 06/21/18 08:00 06/21/18 08:00 Laboratory Results 06/20/18 04:19 06/21/18 10:30 06/20/18 06/21/18 06/22/18 05:59 05:59 05:59 Intake Total 745 1875 Output Total 1999 1175 200 Balance -1255 700 -200 - Physical Exam Constitutional: no apparent distress, appears nourished Eyes: PERRL Ears, Nose, Mouth, Throat: hard of hearing Cardiovascular: regular rate and rhythym Respiratory: no respiratory distress (evaluated anterior side of his lungs), reduced air movement Gastrointestinal: normoactive bowel sounds Genitourinary: irving in urethra Skin: warm, other (did not evaluate his back incision, he had just woken up ) Psychiatric: interacting appropriately, not anxious, not encephalopathic ICD10 Worksheet Patient Problems: Problems Problem Status Onset Fusion of spine of thoracolumbar region Acute Cellulitis of right hand Acute Right wrist pain Acute
--- NOTE | 2018-06-21 16:03 | ASMTCMCOM ---
CM Note CM Note Notes: Both Torrey and Elizabeth from [facility] report it is a "hard no" that [facility] can accept due to pt bx observed by Torrey; pt was "fighting, trying to get out" of rollbelt while restrained in rachele, pt "seemed combative." [facility] declines even though pt rollbelt has been dc for 24 hrs. Referral sent to [facility] because that facility may be a better match considering their work with dementia pts and pt lack of secondary insurance. Approx 1600 today Alyssia with [facility] admissions states they had not made a decision yet on if they can meet pt needs. Insurance authorization will be needed. Pat who is pt MDPOA was updated. Date Signed: 06/21/2018 04:03 PM Electronically Signed By:CHERI Cerna
[2018-06-21] MEDS: METHOCARBAMOL 750 MG TAB PO PRN (17:22)
[2018-06-21] MEDS: traZODone 50 MG TAB PO SCH (20:00)
[2018-06-22] MEDS: ACETAMINOPHEN 500 MG TAB PO SCH ×3 (06:36→20:59)
[2018-06-22] MEDS: oxyCODONE IR 5 MG TAB PO PRN ×3 (06:45→18:29)
[2018-06-22] MEDS: HALOPERIDOL 2 MG TAB PO PRN ×2 (07:07→19:43)
--- NOTE | 2018-06-22 07:48 | SOAPPROG ---
SOAP Progress Note Assessment/Plan: Assessment/Plan: 83 yo M POD #9 T9-Iliac fusion with L2 PSO, L1/2, L2/3, L3/4, L5/S1 TLIF. Pt with post operative agitation and encephalopathy requiring Haldol. He does have some baseline dementia. Post op urinary retention with indwelling irving. Plan: PT/OT brace when OOB but has not been compliant per RN. pain control. agitation, dementia and fall -safety precautions in place by nursing team, minimize sedating medications that may increase his agitation/dementia Urinary retention- continue flomax, failed to urinate irving replaced Wednesday, continue Irving and will need urology follow up as outpatient Hyponatremia- Na 129 today (down from 130 yesterday). Medicine managing DVT ppx: MEG's, SCD's, Lovenox when OOB. Appreciated Medicine involvement and consultation, can work towards transfer once bed available and cleared by medicine please call with neuro changes discussed with Dr Pinto Subjective: Out of bed in chair. Per RN, he has just received Haldol due to impulsiveness and agitation. Complains of low back pain. Some bilateral leg numbness. Objective: NAD. Falling asleep in chair. Oriented to self and year MAEX4 5/5 and equal in BUE and BLE. Incision c/d/i. Catheter Insertion Date: 06/14/18 06/22/18 07:48 Objective: Vital Signs Temp Pulse Resp BP Pulse Ox 37.1 C 78 17 139/74 H 94 06/21/18 23:12 06/21/18 23:12 06/21/18 23:12 06/21/18 23:12 06/21/18 23:12 Laboratory Results 06/20/18 04:19 06/21/18 10:30 06/21/18 06/22/18 06/23/18 05:59 05:59 05:59 Intake Total 1875 300 Output Total 1177 950 Balance 700 -650 ICD10 Worksheet Patient Problems: Problems Problem Status Onset Fusion of spine of thoracolumbar region Acute Cellulitis of right hand Acute Right wrist pain Acute
[2018-06-22] MEDS: SENNOSIDES/DOCUSATE SODIUM TAB PO SCH ×2 (08:25→20:55)
[2018-06-22] MEDS: ENOXAPARIN 40 MG/0.4 ML SYR SC SCH (08:25)
[2018-06-22] MEDS: TAMSULOSIN HCL 0.4 MG CAP PO SCH (08:26)
[2018-06-22] MEDS: FAMOTIDINE 20 MG TAB PO SCH ×2 (08:26→20:55)
[2018-06-22] MEDS: PANTOPRAZOLE SODIUM 40 MG TAB PO SCH (08:26)
[2018-06-22] MEDS: POLYETHYLENE GLYCOL 3350 17 GM PKT PO SCH ×3 (08:37→22:07)
[2018-06-22] MEDS: METHOCARBAMOL 750 MG TAB PO PRN (14:18)
--- NOTE | 2018-06-22 15:26 | ASMTCMCOM ---
CM Note CM Note Notes: Catherine with [facility] completed an on-site assessment of pt today and reports [facility] can clinically accept pt. Now [facility] needs [facility] insurance authorization, updates were sent in Allscripts. Pt MDPOA Pat was updated via voicemail. CM to follow. D/c plan of care: [facility] Date Signed: 06/22/2018 03:25 PM Electronically Signed By:CHERI Cerna
--- NOTE | 2018-06-22 15:56 | HOSPPROG ---
Hospitalist Progress Note Assessment/Plan: 83 yo M w spine surgery and toxic metabolic encephalopathy. First encounter, chart reviewed. *encephalopathy, metabolic -multifactorial -continue to limit meds -he is alert and conversant today *hyponatremia -drop today -urine studies stable -recheck in am *s/p T9-iliac fusion w L2 PSO, L1/2, L2/3, L3/4, L5/S1 TLIF -pod #9 -added prn Robaxin for pain *urinary retention -Flomax, has a irving in *HTN -amlodipine *anemia -post op setting *dvt prophylaxis: LMWH *Dispo -ok to DC to snf Subjective: Sleeping, arousable. No specific complaints. Objective: Vital Signs Temp Pulse Resp BP Pulse Ox 36.6 C 77 17 108/71 93 06/22/18 08:00 06/22/18 08:00 06/22/18 08:00 06/22/18 08:00 06/22/18 08:00 Laboratory Results 06/20/18 04:19 06/21/18 10:30 06/21/18 06/22/18 06/23/18 05:59 05:59 05:59 Intake Total 1875 300 Output Total 1175 950 Balance 700 -650 - Physical Exam Constitutional: appears nourished, not in pain, chronically ill appearing Eyes: PERRL, anicteric sclera, EOMI Ears, Nose, Mouth, Throat: moist mucous membranes, hearing normal, ears appear normal Cardiovascular: regular rate and rhythym, No JVD, No edema Respiratory: no respiratory distress, no rales or rhonchi, reduced air movement Gastrointestinal: normoactive bowel sounds, No tenderness, No ascites Skin: warm, normal color, No mottled Musculoskeletal: normal joint ROM, no joint effusions, generalized weakness Psychiatric: not anxious, poor insight, poor judgement, poor memory ICD10 Worksheet Patient Problems: Problems Problem Status Onset Right wrist pain Acute Cellulitis of right hand Acute Fusion of spine of thoracolumbar region Acute
[2018-06-22] MEDS: traZODone 50 MG TAB PO SCH (20:55)
[2018-06-23] MEDS: oxyCODONE IR 5 MG TAB PO PRN ×5 (00:41→22:01)
[2018-06-23] MEDS: HALOPERIDOL 2 MG TAB PO PRN ×2 (03:26→10:28)
[2018-06-23] MEDS: METHOCARBAMOL 750 MG TAB PO PRN ×3 (04:43→16:53)
[2018-06-23] MEDS: ACETAMINOPHEN 500 MG TAB PO SCH ×3 (04:49→22:06)
--- NOTE | 2018-06-23 09:16 | NEUSURGPN ---
Assessment/Plan: Assessment/Plan: 83 yo M POD #10 T9-Iliac fusion with L2 PSO, L1/2, L2/3, L3/4, L5/S1 TLIF. Pt with post operative agitation and encephalopathy requiring Haldol. He does have some baseline dementia. Post op urinary retention with indwelling irving. Plan: Neuro: Overall still very somnolent and confused this morning. PT/OT brace when OOB but has not been compliant per RN. pain control. agitation, dementia and fall -safety precautions in place by nursing team, minimize sedating medications that may increase his agitation/dementia Urinary retention- continue flomax, failed to urinate irving replaced Wednesday, continue Irving and will need urology follow up as outpatient Hyponatremia- Continues to be low, medicine managing DVT ppx: MEG's, SCD's, Lovenox when OOB. Appreciated Medicine involvement and consultation Dispo planning- patient undergoing authorization for SNF- can go once placement found please call with neuro changes discussed with Dr Pinto Subjective: Patient is saying that he feels "sick" this morning. Denies fever, nausea, chills, cp. sob. When asked to elaborate he just said he felt "sick". Denies much back pain, denies leg pain. Objective: NAD. Falling asleep in bed Oriented to self but not to place or year this morning MAEX4 5/5 and equal in BUE and BLE. SILT Incision c/d/i. Catheter Insertion Date: 06/14/18 - Physician Discussed Patient with : [facility] Physical Exam - Vitals, I&O, Labs I and O 06/22/18 06/23/18 06/24/18 05:59 05:59 05:59 Intake Total 300 1000 Output Total 950 1150 Balance -650 -150 Intake: Oral (ml) 300 1000 Output: Urine (ml) 950 1150 Catheter 950 1150 Other: Intake Quantity Yes Sufficient Number of Voids Catheter 1 Vital Signs Temp Pulse Resp BP Pulse Ox 36.6 C 80 17 113/71 93 06/22/18 08:00 06/22/18 16:13 06/22/18 08:00 06/22/18 16:13 06/22/18 16:13 Laboratory Results 06/20/18 04:19 06/21/18 10:30 ICD10 Worksheet Patient Problems: Problems Problem Status Onset Fusion of spine of thoracolumbar region Acute Cellulitis of right hand Acute Right wrist pain Acute
[2018-06-23] MEDS: TAMSULOSIN HCL 0.4 MG CAP PO SCH (09:30)
[2018-06-23] MEDS: PANTOPRAZOLE SODIUM 40 MG TAB PO SCH (09:30)
[2018-06-23] MEDS: ENOXAPARIN 40 MG/0.4 ML SYR SC SCH (09:30)
[2018-06-23] MEDS: FAMOTIDINE 20 MG TAB PO SCH ×2 (09:31→22:06)
[2018-06-23] MEDS: SENNOSIDES/DOCUSATE SODIUM TAB PO SCH ×2 (09:31→22:05)
[2018-06-23] MEDS: POLYETHYLENE GLYCOL 3350 17 GM PKT PO SCH ×3 (09:31→23:01)
--- NOTE | 2018-06-23 09:31 | PDIAF ---
- Diagnosis Code Status: Full Code - Medication Management Discharge Medications: electronically signed and located in the Home Medication List. - Orders Diet Recommendation: no restrictions on diet Diet Texture: Regular Texture Diet Irving: Yes (Urinary retention postop, irving replaced on 06/21) [employer] Stockings Discontinue Date: once walking for 10 minutes, 3-4 times per day Wound Care Instructions: Follow up with Dr. Pinto in 2 weeks for your postop appointment. Call [phone] for this appointment. No bending, lifting, twisting more than 5-10 pounds for 6 weeks. Wear your brace at all times when you are out of bed. May shower, please change dressing DAILY and keep dry. keep showers short, 5-7 minutes may let warm soapy water wash over incision, no scrubbing, pat dry, leave clean and dry, and replace with DRY dressing daily. Lovenox should continue until patient is walking 3-4 times a day for 10 minutes at a time. Follow up with urology as outpatient if irving unable to be taken out. Call [facility] with any questions or concerns [phone] Activity/Weight Bearing Restrictions: Follow up with Dr. Pinto in 2 weeks for your postop appointment. Call [phone] for this appointment. No bending, lifting , twisting more than 5-10 pounds for 6 weeks. Wear your brace at all times when you are out of bed. May shower, please change dressing DAILY and keep dry. keep showers short, 5-7 minutes may let warm soapy water wash over incision, no scrubbing, pat dry, leave clean and dry, and replace with DRY dressing daily. Lovenox should continue until patient is walking 3-4 times a day for 10 minutes at a time. Follow up with urology as outpatient if irving unable to be taken out. Call [facility] with any questions or concerns [phone] Additional Instructions: Follow up with Dr. Pinto in 2 weeks for your postop appointment. Call [phone] for this appointment No bending, lifting, twisting more than 5-10 pounds for 6 weeks Wear your brace at all times when you are out of bed May shower, please change dressing DAILY and keep dry keep showers short, 5-7 minutes may let warm soapy water wash over incision, no scrubbing, pat dry, leave clean and dry, and replace with DRY dressing daily Lovenox should continue until patient is walking 3-4 times a day for 10 minutes at a time Follow up with urology as outpatient if irving unable to be taken out. Call [facility] with any questions or concerns [phone] - Follow Up Care Current Providers and Referrals: NONE *PRIMARY CARE P,. [Unknown] - Christopher Quintana MD [Medical Doctor] - follow up in 2 weeks
--- NOTE | 2018-06-23 13:15 | HOSPPROG ---
Hospitalist Progress Note Assessment/Plan: 83 yo M w spine surgery and toxic metabolic encephalopathy. *encephalopathy, metabolic -multifactorial -continue to limit meds -he is alert and agitated today -DC Haldo, order zyprexa *hyponatremia -drop, multifactorial, stable -urine studies stable *s/p T9-iliac fusion w L2 PSO, L1/2, L2/3, L3/4, L5/S1 TLIF -pod #10 -prn Robaxin for pain -decrease oxy dose *urinary retention -Flomax, has a irving in *HTN -amlodipine *anemia -post op setting *dvt prophylaxis: LMWH *Dispo -ok to DC to snf Subjective: Up in chair. Agitated today. Objective: Vital Signs Temp Pulse Resp BP Pulse Ox 36.4 C 79 14 135/77 H 96 06/23/18 08:00 06/23/18 08:00 06/23/18 08:00 06/23/18 08:00 06/23/18 08:00 Laboratory Results 06/20/18 04:19 06/21/18 10:30 06/22/18 06/23/18 06/24/18 05:59 05:59 05:59 Intake Total 300 1000 Output Total 950 1150 Balance -650 -150 - Physical Exam Constitutional: appears nourished, chronically ill appearing Eyes: PERRL, anicteric sclera Ears, Nose, Mouth, Throat: moist mucous membranes, hearing normal Cardiovascular: No JVD, No edema Respiratory: no respiratory distress, reduced air movement Gastrointestinal: No tenderness, No ascites Genitourinary: irving in urethra Skin: warm, normal color Musculoskeletal: no joint effusions, generalized weakness Psychiatric: anxious, agitated, poor memory ICD10 Worksheet Patient Problems: Problems Problem Status Onset Right wrist pain Acute Cellulitis of right hand Acute Fusion of spine of thoracolumbar region Acute
--- NOTE | 2018-06-23 16:40 | ASMTCMCOM ---
CM Note CM Note Notes: No [place] [facility] insurance authorization today, updates sent to [facility] in [employer]. Pt Pasrr updated with Trazodone which was started a few days ago and sent to [facility]. CM to follow. D/c plan of care: [facility] when insurance approves Date Signed: 06/23/2018 04:39 PM Electronically Signed By:CHERI Cerna
[2018-06-23] MEDS: OLANZapine 2.5 MG TAB PO PRN (19:19)
[2018-06-23] MEDS: traZODone 50 MG TAB PO SCH (22:05)
[2018-06-24] MEDS: METHOCARBAMOL 750 MG TAB PO PRN ×2 (03:05→18:17)
[2018-06-24] MEDS: oxyCODONE IR 5 MG TAB PO PRN ×5 (04:07→22:22)
[2018-06-24] MEDS: ACETAMINOPHEN 500 MG TAB PO SCH ×3 (06:31→22:23)
[2018-06-24] MEDS: OLANZapine 2.5 MG TAB PO PRN ×2 (06:32→20:52)
--- NOTE | 2018-06-24 07:27 | NEUSURGPN ---
Date of Surgery: 06/13/18 Post Op Day: 11 Assessment/Plan: Assessment: 83 yo M POD #11 s/p T9-Iliac fusion with L2 PSO, L1/2, L2/3, L3/4, L5/S1 TLIF. Pt with post operative agitation and encephalopathy requiring Haldol. He does have some baseline dementia. Post op urinary retention with indwelling irving Plan: -Neuro: Overall better compared with days before. Awake and alert -PT/OT-CPM -brace when OOB but not compliant all the time -continue with current pain control plan -agitation, dementia and fall -safety precautions in place by nursing team, minimize sedating medications that may increase his agitation/dementia -Urinary retention- continue flomax, failed to urinate-irving replaced Wednesday, continue Irving and will need urology follow up as outpatient -Hyponatremia-medicine managing-appreciate their care and input -DVT ppx: MEG's, SCD's, Lovenox -Dispo planning- patient undergoing authorization for SNF-can go once placement found and cleared by IM -please call with neuro changes -discussed with Dr Pinto Subjective: Awake and alert. NAD. Eating/drinking. No new complaints or concerns Objective: NAD. Awake and alert. Follows commands Oriented to self but not to place or year HE X 4 5/5 and equal in BUE and BLE SILT Incision c/d/i Neuro Check Frequency: per routine Urinary Catheter in Place: No Catheter Insertion Date: 06/14/18 - Physician Discussed Patient with : [facility] Physical Exam - Vitals, I&O, Labs I and O 06/23/18 06/24/18 06/25/18 05:59 05:59 05:59 Intake Total 1000 1100 Output Total 1150 1999 Balance -150 -900 Intake: Oral (ml) 1000 1100 Output: Urine (ml) 1150 1999 Catheter 1150 1999 Other: Intake Quantity Yes Sufficient Number of Voids Catheter 1 Number of Stools Toilet 1 Vital Signs Temp Pulse Resp BP Pulse Ox 36.5 C 78 17 167/75 H 96 06/23/18 23:01 06/23/18 23:01 06/23/18 23:01 06/23/18 23:01 06/23/18 23:01 Laboratory Results 06/20/18 04:19 06/21/18 10:30 ICD10 Worksheet Patient Problems: Problems Problem Status Onset Fusion of spine of thoracolumbar region Acute Cellulitis of right hand Acute Right wrist pain Acute
[2018-06-24] MEDS: TAMSULOSIN HCL 0.4 MG CAP PO SCH (09:13)
[2018-06-24] MEDS: POLYETHYLENE GLYCOL 3350 17 GM PKT PO SCH ×3 (09:14→20:54)
[2018-06-24] MEDS: ENOXAPARIN 40 MG/0.4 ML SYR SC SCH (09:14)
[2018-06-24] MEDS: PANTOPRAZOLE SODIUM 40 MG TAB PO SCH (09:14)
[2018-06-24] MEDS: FAMOTIDINE 20 MG TAB PO SCH ×2 (09:14→20:53)
[2018-06-24] MEDS: SENNOSIDES/DOCUSATE SODIUM TAB PO SCH ×2 (09:14→20:53)
--- NOTE | 2018-06-24 10:59 | ASMTCMCOM ---
CM Note CM Note Notes: Catherine with [facility] reports [facility] is not in network with [facility], [facility] did not seem to know what insurances they have contracts with. Another [facility] can accept pt and she will work on insurance auth for [facility] hopefully today. CM to follow. Date Signed: 06/24/2018 10:58 AM Electronically Signed By:CHERI Cerna
--- NOTE | 2018-06-24 14:10 | HOSPPROG ---
Hospitalist Progress Note Assessment/Plan: 83 yo M w spine surgery and toxic metabolic encephalopathy. *encephalopathy, metabolic - significantly better today - medication adjustments helping -multifactorial -continue to limit meds -he is alert and pleasant -DC Haldol, cont zyprexa *hyponatremia -drop, multifactorial, stable -urine studies stable -check labs in am *s/p T9-iliac fusion w L2 PSO, L1/2, L2/3, L3/4, L5/S1 TLIF -pod #10 -prn Robaxin for pain -decrease oxy dose *urinary retention -Flomax, has a irving in *HTN -amlodipine *anemia -post op setting *dvt prophylaxis: LMWH *Dispo -ok to DC to snf Subjective: Up in chair. No specific issues. No pain. Objective: Vital Signs Temp Pulse Resp BP Pulse Ox 36.8 C 76 13 147/80 H 96 06/24/18 08:00 06/24/18 08:00 06/24/18 08:00 06/24/18 08:00 06/24/18 08:00 Laboratory Results 06/20/18 04:19 06/21/18 10:30 06/23/18 06/24/18 06/25/18 05:59 05:59 05:59 Intake Total 1000 1100 Output Total 1150 2000 Balance -150 -900 - Physical Exam Constitutional: appears nourished, chronically ill appearing Eyes: PERRL, anicteric sclera Ears, Nose, Mouth, Throat: moist mucous membranes, hearing normal Cardiovascular: No JVD, No edema Respiratory: no respiratory distress, reduced air movement Gastrointestinal: No tenderness, No ascites Skin: warm, normal color Musculoskeletal: no joint effusions, generalized weakness Psychiatric: not anxious, poor insight, poor judgement ICD10 Worksheet Patient Problems: Problems Problem Status Onset Right wrist pain Acute Cellulitis of right hand Acute Fusion of spine of thoracolumbar region Acute
--- NOTE | 2018-06-24 16:43 | ASMTCMCOM ---
CM Note CM Note Notes: Catherine jarred Villafuerte [phone] reports pt [facility] is a plan out of [place] so this has delayed insurance auth. Since the insurance is not open on weekends this will delay pt d/c again and the soonest auth will be obtained now is Wednesday. CM to follow. D/c plan of care: [facility] when insurance authorizes Date Signed: 06/24/2018 04:43 PM Electronically Signed By:CHERI Cerna
[2018-06-24] MEDS: traZODone 50 MG TAB PO SCH (20:53)
[2018-06-25] MEDS: oxyCODONE IR 5 MG TAB PO PRN ×5 (05:12→23:31)
[2018-06-25] MEDS: ACETAMINOPHEN 500 MG TAB PO SCH ×4 (06:35→22:36)
--- NOTE | 2018-06-25 08:39 | NEUSURGPN ---
Assessment/Plan: Assessment: 83 yo M POD #12 s/p T9-Iliac fusion with L2 PSO, L1/2, L2/3, L3/4, L5/S1 TLIF. Pt with post operative agitation and encephalopathy requiring Haldol. He does have some baseline dementia. Post op urinary retention with indwelling irving Plan: -PT/OT-CPM -brace when OOB but not compliant all the time -continue with current pain control plan -agitation, dementia and fall -safety precautions in place by nursing team, minimize sedating medications that may increase his agitation/dementia -Urinary retention- continue flomax, failed to urinate-irving replaced Wednesday, continue Irving and will need urology follow up as outpatient -DVT ppx: MEG's, SCD's, Lovenox -Dispo planning- patient undergoing authorization for SNF-Awaiting bed placement -please call with neuro changes -discussed with Dr Pinto Subjective: low back pain with some left leg numbness, Denies any new leg weakness Objective: NAD. Awake and alert. Follows commands Oriented to self but not to place or year HE X 4 5/5 and equal in BUE and BLE Incision c/d/i Catheter Insertion Date: 06/14/18 - Physician Discussed Patient with : Lilian Neurosurgery Physical Exam - Vitals, I&O, Labs I and O 06/24/18 06/25/18 06/26/18 05:59 05:59 05:59 Intake Total 1100 Output Total 1999 1300 Balance -900 -1300 Intake: Oral (ml) 1100 Output: Urine (ml) 1999 1300 Catheter 1999 1300 Other: Number of Voids Catheter 1 Number of Stools Toilet 1 Vital Signs Temp Pulse Resp BP Pulse Ox 37.1 C 83 18 142/83 H 96 06/25/18 04:00 06/25/18 04:00 06/25/18 04:00 06/25/18 04:00 06/25/18 04:00 Laboratory Results 06/20/18 04:19 06/21/18 10:30 ICD10 Worksheet Patient Problems: Problems Problem Status Onset Fusion of spine of thoracolumbar region Acute Cellulitis of right hand Acute Right wrist pain Acute
[2018-06-25] MEDS ORDERED: NS 1,000 ML IV SCH (08:45)
[2018-06-25] MEDS: METHOCARBAMOL 750 MG TAB PO PRN ×3 (09:04→22:36)
[2018-06-25] MEDS: PANTOPRAZOLE SODIUM 40 MG TAB PO SCH (09:04)
[2018-06-25] MEDS: FAMOTIDINE 20 MG TAB PO SCH ×2 (09:04→19:49)
[2018-06-25] MEDS: TAMSULOSIN HCL 0.4 MG CAP PO SCH (09:04)
[2018-06-25] MEDS: ENOXAPARIN 40 MG/0.4 ML SYR SC SCH (09:04)
[2018-06-25] MEDS: POLYETHYLENE GLYCOL 3350 17 GM PKT PO SCH ×3 (09:08→22:36)
[2018-06-25] MEDS: SENNOSIDES/DOCUSATE SODIUM TAB PO SCH ×3 (09:08→19:56)
--- NOTE | 2018-06-25 13:58 | HOSPPROG ---
Hospitalist Progress Note Assessment/Plan: 83 yo M w spine surgery and toxic metabolic encephalopathy. *encephalopathy, metabolic - multifactorial, has improved with medication adjustments, seems back to baseline today -continue to limit meds -DC Haldol, cont prn zyprexa *hyponatremia - suspect hypovolemic, Na trending down -fluid restrict, gentle NS x1 L -recheck serum and urine Na in am *s/p T9-iliac fusion w L2 PSO, L1/2, L2/3, L3/4, L5/S1 TLIF -pod #11 -prn Robaxin for pain -decreased oxy dose *urinary retention -Flomax, has a irving in -outpt urology f/u *HTN -amlodipine *anemia -post op setting *dvt prophylaxis: LMWH *Dispo -ok to DC to snf, awaiting insurance approval Subjective: Pt feels well, no complaints. Objective: Vital Signs Temp Pulse Resp BP Pulse Ox 37.0 C 74 18 146/92 H 95 06/25/18 08:00 06/25/18 08:00 06/25/18 08:00 06/25/18 08:00 06/25/18 08:00 Laboratory Results 06/20/18 04:19 06/21/18 10:30 06/24/18 06/25/18 06/26/18 05:59 05:59 05:59 Intake Total 1100 480 Output Total 1999 1300 225 Balance -900 -1300 255 - Physical Exam Constitutional: no apparent distress Eyes: PERRL Ears, Nose, Mouth, Throat: moist mucous membranes Cardiovascular: regular rate and rhythym Respiratory: no respiratory distress, clear to auscultation Gastrointestinal: normoactive bowel sounds, soft, non-tender abdomen Skin: warm Musculoskeletal: full muscle strength Neurologic: AAOx3 Psychiatric: interacting appropriately ICD10 Worksheet Patient Problems: Problems Problem Status Onset Fusion of spine of thoracolumbar region Acute Cellulitis of right hand Acute Right wrist pain Acute
[2018-06-25] MEDS: OLANZapine 2.5 MG TAB PO PRN (19:48)
[2018-06-25] MEDS: traZODone 50 MG TAB PO SCH (19:49)
[2018-06-26] MEDS: oxyCODONE IR 5 MG TAB PO PRN ×4 (04:20→21:17)
[2018-06-26] MEDS: METHOCARBAMOL 750 MG TAB PO PRN ×3 (06:34→23:26)
[2018-06-26] MEDS: ACETAMINOPHEN 500 MG TAB PO SCH ×3 (06:36→23:26)
[2018-06-26] MEDS: FAMOTIDINE 20 MG TAB PO SCH ×2 (07:30→21:17)
[2018-06-26] MEDS: ENOXAPARIN 40 MG/0.4 ML SYR SC SCH (07:30)
[2018-06-26] MEDS: PANTOPRAZOLE SODIUM 40 MG TAB PO SCH (07:30)
[2018-06-26] MEDS: TAMSULOSIN HCL 0.4 MG CAP PO SCH (07:30)
[2018-06-26] MEDS: POLYETHYLENE GLYCOL 3350 17 GM PKT PO SCH ×3 (07:31→21:16)
[2018-06-26] MEDS: SENNOSIDES/DOCUSATE SODIUM TAB PO SCH ×2 (07:31→21:15)
--- NOTE | 2018-06-26 08:04 | NEUSURGPN ---
Assessment/Plan: Assessment: 83 yo M POD #13 s/p T9-Iliac fusion with L2 PSO, L1/2, L2/3, L3/4, L5/S1 TLIF. Pt with post operative agitation and encephalopathy requiring Haldol. He does have some baseline dementia. Post op urinary retention with indwelling irving Plan: -PT/OT-CPM -brace when OOB but not compliant all the time -continue with current pain control plan -agitation, dementia and fall -safety precautions in place by nursing team, minimize sedating medications that may increase his agitation/dementia. This has improved -Urinary retention- continue flomax, failed to urinate-irving replaced 06/18, continue Irving and will need urology follow up as outpatient -DVT ppx: MEG's, SCD's, Lovenox -Dispo planning- patient undergoing authorization for SNF-Awaiting bed placement -please call with neuro changes -discussed with Dr Pinto Subjective: low back pain, denies any new leg pain, numbness, tingling or weakness Objective: NAD. Awake and alert. Follows commands Oriented to self but not to place or year HE X 4 5/ and equal in BUE and BLE Incision c/d/i Catheter Insertion Date: 06/14/18 - Physician Discussed Patient with : Lilian Neurosurgery Physical Exam - Vitals, I&O, Labs I and O 06/25/18 06/26/18 06/27/18 05:59 05:59 05:59 Intake Total 1480 Output Total 1300 525 500 Balance -1300 955 -500 Intake: Oral (ml) 980 IV Infused (ml) 500 Ns 1,000 ml @ 75 mls/hr 500 IV CONT APPLE Rx#: [id number] Output: Urine (ml) 1300 525 500 Catheter 1300 525 500 Other: Intake Quantity Yes Sufficient Vital Signs Temp Pulse Resp BP Pulse Ox 36.4 C 70 15 142/78 H 96 06/26/18 07:21 06/26/18 07:21 06/26/18 07:21 06/26/18 07:21 06/26/18 07:21 Laboratory Results 06/20/18 04:19 06/26/18 04:25 ICD10 Worksheet Patient Problems: Problems Problem Status Onset Fusion of spine of thoracolumbar region Acute Cellulitis of right hand Acute Right wrist pain Acute
[2018-06-26] MEDS: SODIUM CHLORIDE 1,000 MG TAB PO SCH ×2 (10:52→17:33)
--- NOTE | 2018-06-26 14:58 | HOSPPROG ---
Hospitalist Progress Note Assessment/Plan: 83 yo M w spine surgery and toxic metabolic encephalopathy. *encephalopathy, metabolic - multifactorial, has improved with medication adjustments, seems back to baseline today -continue to limit meds -DC Haldol, cont prn zyprexa *hyponatremia - Na trending down, urine studies c/w SIADH -cont fluid restriction -check TSH, cortisol -add salt tabs *s/p T9-iliac fusion w L2 PSO, L1/2, L2/3, L3/4, L5/S1 TLIF -pod #12 -prn Robaxin for pain -decreased oxy dose *urinary retention -Flomax, has a irving in -outpt urology f/u *HTN -amlodipine *anemia -post op setting *dvt prophylaxis: LMWH *Dispo - planning for snf, awaiting insurance approval Subjective: Pt feels ok, no complaints. Objective: Vital Signs Temp Pulse Resp BP Pulse Ox 36.4 C 70 15 142/78 H 96 06/26/18 07:21 06/26/18 07:21 06/26/18 07:21 06/26/18 07:21 06/26/18 07:21 Laboratory Results 06/20/18 04:19 06/26/18 04:25 06/25/18 06/26/18 06/27/18 05:59 05:59 05:59 Intake Total 1480 Output Total 1300 525 500 Balance -1300 955 -500 - Physical Exam Constitutional: no apparent distress Eyes: PERRL Ears, Nose, Mouth, Throat: moist mucous membranes Cardiovascular: regular rate and rhythym Respiratory: no respiratory distress, clear to auscultation Gastrointestinal: normoactive bowel sounds, soft, non-tender abdomen Skin: warm Musculoskeletal: full muscle strength Neurologic: AAOx3 Psychiatric: interacting appropriately ICD10 Worksheet Patient Problems: Problems Problem Status Onset Fusion of spine of thoracolumbar region Acute Cellulitis of right hand Acute Right wrist pain Acute
[2018-06-26] MEDS: OLANZapine 2.5 MG TAB PO PRN (21:17)
[2018-06-26] MEDS: traZODone 50 MG TAB PO SCH (21:45)
[2018-06-26] MEDS: MELATONIN 3 MG TAB PO PRN (23:26)
[2018-06-27] MEDS: MELATONIN 3 MG TAB PO PRN (02:00)
[2018-06-27] MEDS: oxyCODONE IR 5 MG TAB PO PRN ×3 (02:01→14:07)
[2018-06-27] MEDS: ACETAMINOPHEN 500 MG TAB PO SCH ×3 (06:24→21:06)
--- NOTE | 2018-06-27 08:14 | NEUSURGPN ---
Assessment/Plan: Assessment: 83 yo M POD #14 s/p T9-Iliac fusion with L2 PSO, L1/2, L2/3, L3/4, L5/S1 TLIF. Pt with post operative agitation and encephalopathy requiring Haldol. He does have some baseline dementia. Post op urinary retention with indwelling irving No changes today Plan: -PT/OT-CPM -brace when OOB but not compliant all the time -continue with current pain control plan -agitation, dementia and fall -safety precautions in place by nursing team, minimize sedating medications that may increase his agitation/dementia. This has improved -Urinary retention- continue flomax, failed to urinate-irving replaced 06/18, continue Irving and will need urology follow up as outpatient -DVT ppx: MEG's, SCD's, Lovenox -Dispo planning- patient undergoing authorization for SNF-Awaiting bed placement -please call with neuro changes -discussed with Dr Pinto Subjective: low back pain with some left leg numbness, Denies any new leg weakness Objective: NAD. Awake and alert. Follows commands Oriented to self and place HE X 4 5/5 and equal in BUE and BLE Incision c/d/i Catheter Insertion Date: 06/14/18 - Physician Discussed Patient with : Lilian Neurosurgery Physical Exam - Vitals, I&O, Labs I and O 06/26/18 06/27/18 06/28/18 05:59 05:59 05:59 Intake Total 1480 738 Output Total 525 1350 Balance 955 -612 Intake: Oral (ml) 980 738 IV Infused (ml) 500 Ns 1,000 ml @ 75 mls/hr 500 IV CONT APPLE Rx#: [id number] Output: Urine (ml) 525 1350 Catheter 525 1350 Other: Intake Quantity Yes Yes Sufficient Number of Voids Catheter 1 Vital Signs Temp Pulse Resp BP Pulse Ox 37.1 C 83 18 152/75 H 94 06/27/18 07:34 06/27/18 07:34 06/27/18 07:34 06/27/18 07:34 06/27/18 07:34 Laboratory Results 06/20/18 04:19 06/27/18 04:16 ICD10 Worksheet Patient Problems: Problems Problem Status Onset Fusion of spine of thoracolumbar region Acute Cellulitis of right hand Acute Right wrist pain Acute
[2018-06-27] MEDS: TAMSULOSIN HCL 0.4 MG CAP PO SCH (08:24)
[2018-06-27] MEDS: SENNOSIDES/DOCUSATE SODIUM TAB PO SCH ×2 (08:24→21:05)
[2018-06-27] MEDS: POLYETHYLENE GLYCOL 3350 17 GM PKT PO SCH ×3 (08:24→21:06)
[2018-06-27] MEDS: PANTOPRAZOLE SODIUM 40 MG TAB PO SCH (08:24)
[2018-06-27] MEDS: ENOXAPARIN 40 MG/0.4 ML SYR SC SCH (08:24)
[2018-06-27] MEDS: FAMOTIDINE 20 MG TAB PO SCH ×2 (08:24→21:05)
[2018-06-27] MEDS: SODIUM CHLORIDE 1,000 MG TAB PO SCH ×2 (08:24→17:18)
[2018-06-27] MEDS: METHOCARBAMOL 750 MG TAB PO PRN (09:12)
[2018-06-27] MEDS: OLANZapine 2.5 MG TAB PO PRN ×2 (09:12→21:07)
--- NOTE | 2018-06-27 09:40 | ASMTCMCOM ---
CM Note CM Note Notes: Spoke with Catherine with [facility] #[phone], they are still working on insurance auth with [employer]. [facility] UR nurse will attempt to obtain a contact # in hopes we can push for SNF approval on our end as well. CM will follow. Plan: [facility] pending authorization. Date Signed: 06/27/2018 09:40 AM Electronically Signed By:Susie Colorado RN
--- NOTE | 2018-06-27 16:10 | HOSPPROG ---
Hospitalist Progress Note Assessment/Plan: 83 yo M w spine surgery and toxic metabolic encephalopathy. *encephalopathy, metabolic - post-operative agitation multifactorial, has improved with medication adjustments, back to baseline -cont prn zyprexa *hyponatremia - urine studies c/w SIADH, Na trending back up. TSH, cortisol nl. -cont fluid restriction and salt tabs -monitor daily Na *s/p T9-iliac fusion w L2 PSO, L1/2, L2/3, L3/4, L5/S1 TLIF - pod #13, poor pain control, neurosurgery requests no nsaids -cont scheduled tylenol, add prn tramadol -prn Robaxin, could try scheduling this -prn oxy (low dose) *urinary retention - indwelling irving -cont flomax -needs outpt urology f/u *HTN - cont amlodipine *anemia - post-op, stable *dvt prophylaxis: LMWH *Dispo - discussed with CM and PT. He has been denied for SNF, but PT doesn't think he is safe for Home health plan. CM continuing to look at options. Subjective: Pt up at edge of bed eating. Appears comfortable, but says he has severe pain. Refused to work with PT today due to pain. No fevers. Objective: Vital Signs Temp Pulse Resp BP Pulse Ox 37.1 C 83 18 152/75 H 94 06/27/18 07:34 06/27/18 07:34 06/27/18 07:34 06/27/18 07:34 06/27/18 07:34 Laboratory Results 06/20/18 04:19 06/27/18 04:16 06/26/18 06/27/18 06/28/18 05:59 05:59 05:59 Intake Total 1480 738 200 Output Total 525 1350 Balance 955 -612 200 - Physical Exam Constitutional: no apparent distress Eyes: PERRL Ears, Nose, Mouth, Throat: moist mucous membranes Cardiovascular: regular rate and rhythym Respiratory: no respiratory distress, clear to auscultation Gastrointestinal: normoactive bowel sounds, soft, non-tender abdomen Skin: warm Musculoskeletal: full muscle strength, other (spinal dressing is c/d/i) Neurologic: AAOx3 Psychiatric: interacting appropriately ICD10 Worksheet Patient Problems: Problems Problem Status Onset Fusion of spine of thoracolumbar region Acute Cellulitis of right hand Acute Right wrist pain Acute
--- NOTE | 2018-06-27 16:32 | ASMTCMCOM ---
CM Note CM Note Notes: Received a call from Catherine at [facility], [employer] has denied patient for SNF. I have attempted numerous [employer] #s to request an expedited appeal, no luck as of yet. The company that handles all approvals for [employer] [place] is unable to handle an appeal d/t an out of state request. Attempted to call [employer] at #[phone]. Also attempted to request appeal at #[phone] and #[phone], unable to get through to a business process representative to assist with appeals. I have discussed case with Neurosurgery, Hospitalist and PT. PT will plan to re-evaluate again on Wednesday. Neurosurgery defers to therapy on level of safety. CM spoke with ex-, Bev, re: SNF denial. Pat is currently recovering from PNA and does not feel she can manage him at the moment. We did talk about the possibility of private pay at SNF - Pat will speak to patient about his financial ability to do this on Wednesday. This d/c plan remains tbd at this time. CM will continue to follow. Plan: TBD (patient has used [facility] in the past). Date Signed: 06/27/2018 04:32 PM Electronically Signed By:Susie Colorado RN
[2018-06-27] MEDS: traZODone 50 MG TAB PO SCH (21:07)
[2018-06-28] MEDS: METHOCARBAMOL 750 MG TAB PO PRN ×3 (02:45→21:40)
[2018-06-28] MEDS: traMADol 50 MG TAB PO PRN (03:58)
[2018-06-28] MEDS: ACETAMINOPHEN 500 MG TAB PO SCH ×3 (06:16→21:40)
--- NOTE | 2018-06-28 07:59 | SOAPPROG ---
SOAP Progress Note Assessment/Plan: Assessment: 83 yo M POD #14 T9-Iliac fusion with L2 PSO, L1/2, L2/3, L3/4, L5/ S1 TLIF Plan: neuro: stable dementia, will follow for now PT/OT hyponatremia: per IM, 131 this am dementia: per IM urinary retention: on flomax, irving in place x-rays show good position of hardware Dc supply chain planner looking at SNF placement please call with neuro changes discussed with Dr Pinto 06/13/18 17:48 06/14/18 08:08 06/15/18 07:59 06/28/18 07:56 06/28/18 07:59 Subjective: continued back pain, no leg pain, no weakness. Objective: Vital Signs Temp Pulse Resp BP Pulse Ox 36.3 C 75 19 144/80 H 94 06/28/18 07:27 06/28/18 07:27 06/28/18 07:27 06/28/18 07:27 06/28/18 07:27 Laboratory Results 06/20/18 04:19 06/28/18 04:18 06/27/18 06/28/18 06/29/18 05:59 05:59 05:59 Intake Total 738 850 Output Total 1350 1200 Balance -612 -350 Awake, alert, oriented to city/month, confused on year PERRL, no facial droop 5/5 + light touch C/D/I ICD10 Worksheet Patient Problems: Problems Problem Status Onset Fusion of spine of thoracolumbar region Acute Cellulitis of right hand Acute Right wrist pain Acute - ICD10 Problem Qualifiers (1) Fusion of spine of thoracolumbar region
[2018-06-28] MEDS: ENOXAPARIN 40 MG/0.4 ML SYR SC SCH (10:13)
[2018-06-28] MEDS: FAMOTIDINE 20 MG TAB PO SCH ×2 (10:13→20:19)
[2018-06-28] MEDS: POLYETHYLENE GLYCOL 3350 17 GM PKT PO SCH ×3 (10:13→22:17)
[2018-06-28] MEDS: SENNOSIDES/DOCUSATE SODIUM TAB PO SCH ×2 (10:13→22:17)
[2018-06-28] MEDS: PANTOPRAZOLE SODIUM 40 MG TAB PO SCH (10:13)
[2018-06-28] MEDS: TAMSULOSIN HCL 0.4 MG CAP PO SCH (10:22)
[2018-06-28] MEDS: SODIUM CHLORIDE 1,000 MG TAB PO SCH ×2 (10:23→18:01)
[2018-06-28] MEDS: OLANZapine 2.5 MG TAB PO PRN (10:40)
--- NOTE | 2018-06-28 14:19 | HOSPPROG ---
Hospitalist Progress Note Assessment/Plan: 83 yo M w spine surgery and toxic metabolic encephalopathy. *encephalopathy, metabolic - post-operative agitation multifactorial, has improved with medication adjustments, back to baseline -cont prn zyprexa -he knows where he is, and is very talkative today *hyponatremia - urine studies c/w SIADH, Na trending back up. TSH, cortisol nl. -cont fluid restriction and salt tabs -monitor daily Na *s/p T9-iliac fusion w L2 PSO, L1/2, L2/3, L3/4, L5/S1 TLIF - pod #13, poor pain control, neurosurgery requests no nsaids -cont scheduled tylenol, add prn tramadol -prn Robaxin, could try scheduling this -prn oxy (low dose) *urinary retention - indwelling irving -cont flomax -needs outpt urology f/u *HTN - cont amlodipine *anemia - post-op, stable *dvt prophylaxis: LMWH Subjective: Nikolas has no complaints. happy being in the hospital. Objective: Vital Signs Temp Pulse Resp BP Pulse Ox 36.3 C 75 19 144/80 H 94 06/28/18 07:27 06/28/18 07:27 06/28/18 07:27 06/28/18 07:27 06/28/18 07:27 Laboratory Results 06/20/18 04:19 06/28/18 04:18 06/27/18 06/28/18 06/29/18 05:59 05:59 05:59 Intake Total 738 850 Output Total 1350 1200 Balance -612 -350 - Physical Exam Constitutional: no apparent distress, appears nourished, not in pain Eyes: PERRL Ears, Nose, Mouth, Throat: hearing normal Cardiovascular: regular rate and rhythym Respiratory: no respiratory distress Gastrointestinal: normoactive bowel sounds Genitourinary: irving in urethra Skin: warm Neurologic: other (alert and oriented to where he is ) Psychiatric: interacting appropriately, poor memory ICD10 Worksheet Patient Problems: Problems Problem Status Onset Fusion of spine of thoracolumbar region Acute Cellulitis of right hand Acute Right wrist pain Acute
--- NOTE | 2018-06-28 15:50 | ASMTCMCOM ---
CM Note CM Note Notes: CM applications project manager reached out to [facility] and found out pt's [facility] plan does not have a phone option for a p2p. Appeal can be faxed to [phone] or email: [email or web address]. Neurosurgery GABRIELLE Beckford agrees to send a letter to the email today. Voicemail left for Pat to see if she talked to pt about SNF private pay. Pt still not safe to return home and PT continues to rec SNF. D/c plan is TBD based on insurance now Date Signed: 06/28/2018 03:49 PM Electronically Signed By:CHERI Cerna
[2018-06-28] MEDS: oxyCODONE IR 5 MG TAB PO PRN ×2 (18:00→21:40)
[2018-06-28] MEDS: traZODone 50 MG TAB PO SCH (20:19)
[2018-06-28] MEDS: MELATONIN 3 MG TAB PO PRN (21:41)
[2018-06-29] MEDS: oxyCODONE IR 5 MG TAB PO PRN ×4 (02:41→21:11)
[2018-06-29] MEDS: OLANZapine 2.5 MG TAB PO PRN (02:41)
[2018-06-29] MEDS: METHOCARBAMOL 750 MG TAB PO PRN ×2 (06:37→21:10)
[2018-06-29] MEDS: ACETAMINOPHEN 500 MG TAB PO SCH ×3 (06:38→21:17)
--- NOTE | 2018-06-29 07:58 | SOAPPROG ---
SOAP Progress Note Assessment/Plan: Assessment: 83 yo M POD #15 T9-Iliac fusion with L2 PSO, L1/2, L2/3, L3/4, L5/ S1 TLIF Plan: neuro: stable dementia, will follow for now PT/OT hyponatremia: per IM, 131 06/28 dementia: per IM urinary retention: on flomax, irving in place x-rays show good position of hardware scd/crystal/lovenox for dvt prophylaxis Dc party planner looking at SNF placement, letter sent yesterday to appeal rehab placement please call with neuro changes discussed with Dr Pinto 06/13/18 17:48 06/14/18 08:08 06/15/18 07:59 06/28/18 07:56 06/28/18 07:59 06/29/18 07:57 Subjective: minimal back pain, no leg pain, no weakness. Objective: Vital Signs Temp Pulse Resp BP Pulse Ox 36.9 C 78 15 161/90 H 96 06/29/18 00:00 06/29/18 00:00 06/29/18 00:00 06/29/18 00:00 06/29/18 00:00 Laboratory Results 06/20/18 04:19 06/28/18 04:18 06/28/18 06/29/18 06/30/18 05:59 05:59 05:59 Intake Total 850 550 Output Total 1200 550 Balance -350 0 AAOx3, confused to year, +FC PERRL, EOMI, no facial droop 5/5 + light touch C/D/I ICD10 Worksheet Patient Problems: Problems Problem Status Onset Fusion of spine of thoracolumbar region Acute Cellulitis of right hand Acute Right wrist pain Acute - ICD10 Problem Qualifiers (1) Fusion of spine of thoracolumbar region
[2018-06-29] MEDS: SODIUM CHLORIDE 1,000 MG TAB PO SCH ×2 (08:33→18:12)
[2018-06-29] MEDS: PANTOPRAZOLE SODIUM 40 MG TAB PO SCH (08:37)
[2018-06-29] MEDS: TAMSULOSIN HCL 0.4 MG CAP PO SCH (08:37)
[2018-06-29] MEDS: FAMOTIDINE 20 MG TAB PO SCH ×2 (08:38→21:11)
[2018-06-29] MEDS: SENNOSIDES/DOCUSATE SODIUM TAB PO SCH ×2 (08:38→21:12)
[2018-06-29] MEDS: ENOXAPARIN 40 MG/0.4 ML SYR SC SCH (08:39)
[2018-06-29] MEDS: POLYETHYLENE GLYCOL 3350 17 GM PKT PO SCH ×3 (08:41→21:45)
[2018-06-29] MEDS: traMADol 50 MG TAB PO PRN (10:23)
--- NOTE | 2018-06-29 10:50 | HOSPPROG ---
Hospitalist Progress Note Assessment/Plan: 83 yo M w spine surgery and toxic metabolic encephalopathy. *encephalopathy, metabolic - post-operative agitation multifactorial, has improved with medication adjustments, back to baseline -cont prn zyprexa -he is appropriate during my interview *hyponatremia - urine studies c/w SIADH, Na trending back up. TSH, cortisol nl. -cont fluid restriction and salt tabs *s/p T9-iliac fusion w L2 PSO, L1/2, L2/3, L3/4, L5/S1 TLIF - pod #13, poor pain control, neurosurgery requests no nsaids -cont scheduled tylenol, add prn tramadol -prn Robaxin, could try scheduling this -prn oxy (low dose) -added Lidoderm patch *urinary retention - indwelling irving -cont flomax -needs outpt urology f/u *HTN - cont amlodipine *anemia - post-op, stable *dvt prophylaxis: LMWH Subjective: Nikolas is c/o mid back pain. Objective: Vital Signs Temp Pulse Resp BP Pulse Ox 37.2 C 94 15 128/67 H 95 06/29/18 08:00 06/29/18 08:00 06/29/18 08:00 06/29/18 08:00 06/29/18 08:00 Laboratory Results 06/20/18 04:19 06/28/18 04:18 06/28/18 06/29/18 06/30/18 05:59 05:59 05:59 Intake Total 850 550 Output Total 1200 550 Balance -350 0 - Physical Exam Constitutional: uncomfortable Eyes: PERRL Ears, Nose, Mouth, Throat: hearing normal Cardiovascular: regular rate and rhythym Respiratory: no respiratory distress Genitourinary: irving in urethra Skin: warm, other (back incision is well approximated, no redness or drainage) Musculoskeletal: generalized weakness Neurologic: other (alert and oriented to himself) Psychiatric: interacting appropriately ICD10 Worksheet Patient Problems: Problems Problem Status Onset Fusion of spine of thoracolumbar region Acute Cellulitis of right hand Acute Right wrist pain Acute
[2018-06-29] MEDS: LIDOCAINE 4%/MENTHOL 1% PATCH TD SCH (11:16)
--- NOTE | 2018-06-29 15:30 | ASMTCMCOM ---
CM Note CM Note Notes: CM spent over one hour trying to get information for the expedited appeal to get authorization for SNF from [facility]. There are several numbers for [facility], the best seems to be [phone] and use . This CM spoke with [facility] agent Rosalba who had no information on the expedited appeal in the system, she reports there is 72 hours before it even gets in their system and then they have the option to extend it 14 days. Pt MDPOA Pat left a message reporting she has not been able to speak with pt about private pay SNF. Pat also wonders if pt can get rehab through [facility]. Pt has no [facility] benefits on record. This CM went to speak with pt about private pay SNF but he was sleeping. Neurosurgery GABRIELLE Lima updated. CM management updated. Of note: the numbers which do not seem to work to reach anyone at [facility] are [phone], , , Date Signed: 06/29/2018 03:29 PM Electronically Signed By:CHERI Cerna
--- NOTE | 2018-06-29 16:42 | ASMTCMCOM ---
CM Note CM Note Notes: UR received a notification from [facility] with a new # for appeal, , Option 2, then option 1. [facility] closed for the day, message left for their CM department. The contract # is [id number]. CM will f/u on . Date Signed: 06/29/2018 04:41 PM Electronically Signed By:Susie Colorado RN
[2018-06-29] MEDS: traZODone 50 MG TAB PO SCH (21:11)
[2018-06-29] MEDS: MELATONIN 3 MG TAB PO PRN (21:12)
[2018-06-29] MEDS: PATCH REMOVAL 1 EA PATCH TD SCH (21:19)
[2018-06-30] MEDS: oxyCODONE IR 5 MG TAB PO PRN ×5 (02:14→22:02)
[2018-06-30] MEDS: METHOCARBAMOL 750 MG TAB PO PRN ×2 (04:18→17:30)
[2018-06-30] MEDS: OLANZapine 2.5 MG TAB PO PRN ×2 (04:18→14:10)
[2018-06-30] MEDS: ACETAMINOPHEN 500 MG TAB PO SCH ×3 (06:07→22:02)
--- NOTE | 2018-06-30 07:25 | SOAPPROG ---
SOAP Progress Note Assessment/Plan: Assessment: 83 yo M POD #15 T9-Iliac fusion with L2 PSO, L1/2, L2/3, L3/4, L5/ S1 TLIF Plan: neuro: stable dementia, will follow for now PT/OT hyponatremia: per IM, 131 06/28 dementia: per IM urinary retention: on flomax, irving in place x-rays show good position of hardware scd/crystal/lovenox for dvt prophylaxis Dc landscape architect and planner looking at SNF placement, letter sent yesterday to appeal rehab placement please call with neuro changes discussed with Dr Pinto 06/13/18 17:48 06/14/18 08:08 06/15/18 07:59 06/28/18 07:56 06/28/18 07:59 06/29/18 07:57 Subjective: continued back pain no leg pain, no weakness. Objective: Vital Signs Temp Pulse Resp BP Pulse Ox 36.5 C 82 15 138/81 H 95 06/30/18 04:00 06/30/18 04:00 06/30/18 04:00 06/30/18 04:00 06/30/18 04:00 Laboratory Results 06/20/18 04:19 06/28/18 04:18 06/29/18 06/30/18 07/01/18 05:59 05:59 05:59 Intake Total 550 840 Output Total 550 600 Balance 0 240 Awake, alert, confused to year, +FC PERRL, EOMI, no facial droop 5/5 + light touch C/D/I ICD10 Worksheet Patient Problems: Problems Problem Status Onset Fusion of spine of thoracolumbar region Acute Cellulitis of right hand Acute Right wrist pain Acute - ICD10 Problem Qualifiers (1) Fusion of spine of thoracolumbar region
[2018-06-30] MEDS: SENNOSIDES/DOCUSATE SODIUM TAB PO SCH ×2 (08:25→20:20)
[2018-06-30] MEDS: TAMSULOSIN HCL 0.4 MG CAP PO SCH (08:25)
[2018-06-30] MEDS: ENOXAPARIN 40 MG/0.4 ML SYR SC SCH (08:25)
[2018-06-30] MEDS: SODIUM CHLORIDE 1,000 MG TAB PO SCH ×2 (08:25→17:30)
[2018-06-30] MEDS: PANTOPRAZOLE SODIUM 40 MG TAB PO SCH (08:25)
[2018-06-30] MEDS: FAMOTIDINE 20 MG TAB PO SCH ×2 (08:25→20:20)
[2018-06-30] MEDS: POLYETHYLENE GLYCOL 3350 17 GM PKT PO SCH ×3 (08:25→22:26)
[2018-06-30] MEDS: LIDOCAINE 4%/MENTHOL 1% PATCH TD SCH (08:25)
--- NOTE | 2018-06-30 10:03 | ASMTCMCOM ---
CM Note CM Note Notes: Message left for Karlos Lima to call and attempt P2P with [employer] at #[phone], option 2 and then option 1. CM will continue to follow. Plan: TBD Date Signed: 06/30/2018 10:02 AM Electronically Signed By:Susie Colorado RN
--- NOTE | 2018-06-30 14:23 | ASMTCMCOM ---
CM Note CM Note Notes: P2P phone number provided to GABRIELLE Lima today. [facility] help [facility] [phone] shan Darden reports they have pt in system and they [facility] [place] [phone] "non-VA care dept" but the wait time was too long to hold. Pt SABA Pat will be informed to call [facility] because maybe she can wait and get information. Estuardo with [facility] (they have [facility]) is provided pt information to run pt and see if he has any [facility] benefits. Pt reports he is ready to go to SNF, does not think his insurance will approve SNF, and he has resources to private pay for a SNF in [place]. Tammy with [facility] met w pt to discuss his finances, he referred her to his SABA Pat. Tammy will see if pt has Mdcr Part B for therapy and D for prescriptions so that pt only has to pay room and board. Tammy also to call [facility] Pat. D/c plan of care is pending [facility] p2p appeal and [facility] private pay assessment Date Signed: 06/30/2018 02:22 PM Electronically Signed By:CHERI Cerna
--- NOTE | 2018-06-30 16:21 | HOSPPROG ---
Hospitalist Progress Note Assessment/Plan: 83 yo M w spine surgery and toxic metabolic encephalopathy. *encephalopathy, metabolic - post-operative agitation multifactorial, has improved with medication adjustments, back to baseline -cont prn zyprexa -he is appropriate during my interview *hyponatremia - urine studies c/w SIADH, Na trending back up. TSH, cortisol nl. -cont fluid restriction and salt tabs *s/p T9-iliac fusion w L2 PSO, L1/2, L2/3, L3/4, L5/S1 TLIF - pod #13, poor pain control, neurosurgery requests no nsaids -cont scheduled tylenol, add prn tramadol -prn Robaxin, could try scheduling this -prn oxy (low dose) -added Lidoderm patch *urinary retention - indwelling irving -cont flomax -needs outpt urology f/u *HTN - cont amlodipine *anemia - post-op, stable *dvt prophylaxis: LMWH Subjective: Nikolas said his back hurts and expects it to hurt for the next several months. Objective: Vital Signs Temp Pulse Resp BP Pulse Ox 36.9 C 74 16 134/81 H 99 06/30/18 15:54 06/30/18 15:54 06/30/18 15:54 06/30/18 15:54 06/30/18 15:54 Laboratory Results 06/20/18 04:19 06/28/18 04:18 06/29/18 06/30/18 07/01/18 05:59 05:59 05:59 Intake Total 550 840 525 Output Total 550 600 Balance 0 240 525 - Physical Exam Constitutional: chronically ill appearing, uncomfortable Eyes: PERRL Ears, Nose, Mouth, Throat: hard of hearing Respiratory: no respiratory distress Gastrointestinal: normoactive bowel sounds Genitourinary: irving in urethra Skin: warm, other (back incision pink along the edges, well approximated, no drainaga) Musculoskeletal: generalized weakness Psychiatric: interacting appropriately, poor insight, poor memory ICD10 Worksheet Patient Problems: Problems Problem Status Onset Fusion of spine of thoracolumbar region Acute Cellulitis of right hand Acute Right wrist pain Acute
[2018-06-30] MEDS: traZODone 50 MG TAB PO SCH (20:20)
[2018-06-30] MEDS: MELATONIN 3 MG TAB PO PRN (20:20)
[2018-06-30] MEDS: PATCH REMOVAL 1 EA PATCH TD SCH (21:03)
[2018-07-01] MEDS: oxyCODONE IR 5 MG TAB PO PRN ×3 (02:06→16:02)
[2018-07-01] MEDS: OLANZapine 2.5 MG TAB PO PRN (02:06)
[2018-07-01] MEDS: ACETAMINOPHEN 500 MG TAB PO SCH ×2 (06:12→16:02)
--- NOTE | 2018-07-01 08:10 | SOAPPROG ---
[facility] Progress Note Assessment/Plan: Assessment/Plan: Assessment: 83 yo M POD #16 T9-Iliac fusion with L2 PSO, L1/2, L2/3, L3/4, L5/ S1 TLIF. Doing better overall. Still with some confusion. Plan: pain mgmt. 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 C/O pain with movement but he is feeling better overall. Denies leg pain, numbness, tingling or weakness Objective: Vital Signs Temp Pulse Resp BP Pulse Ox 36.9 C 90 16 114/68 94 06/30/18 23:05 06/30/18 23:05 06/30/18 23:05 06/30/18 23:05 06/30/18 23:05 Laboratory Results 06/20/18 04:19 07/01/18 05:15 06/30/18 07/01/18 07/02/18 05:59 05:59 05:59 Intake Total 840 925 Output Total 600 450 Balance 240 475 Incision: CDI Neuro: Oriented x 3. He does not know the year Follows commands x 4 5/5 bilateral LE sens +LT no calf pain or tenderness ICD10 Worksheet Patient Problems: Problems Problem Status Onset Fusion of spine of thoracolumbar region Acute Cellulitis of right hand Acute Right wrist pain Acute
[2018-07-01] MEDS: TAMSULOSIN HCL 0.4 MG CAP PO SCH (08:40)
[2018-07-01] MEDS: METHOCARBAMOL 750 MG TAB PO PRN (08:40)
[2018-07-01] MEDS: SODIUM CHLORIDE 1,000 MG TAB PO SCH (08:40)
[2018-07-01] MEDS: SENNOSIDES/DOCUSATE SODIUM TAB PO SCH (08:40)
[2018-07-01] MEDS: POLYETHYLENE GLYCOL 3350 17 GM PKT PO SCH (08:40)
[2018-07-01] MEDS: PANTOPRAZOLE SODIUM 40 MG TAB PO SCH (08:40)
[2018-07-01] MEDS: LIDOCAINE 4%/MENTHOL 1% PATCH TD SCH (08:41)
[2018-07-01] MEDS: ENOXAPARIN 40 MG/0.4 ML SYR SC SCH (08:41)
[2018-07-01] MEDS: FAMOTIDINE 20 MG TAB PO SCH (08:41)
[2018-07-01 08:52] VITALS: BP 176/94
--- NOTE | 2018-07-01 12:38 | PDIAF ---
- Diagnosis Diagnosis: T9-Iliac fusion with L2 pedicle subtraction osteotomy Code Status: Full Code - Medication Management Discharge Medications: electronically signed and located in the Home Medication List. - Orders Services needed: Physical Therapy, Occupational Therapy, Speech Language Pathologist Diet Recommendation: no restrictions on diet Diet Texture: Regular Texture Diet Irving: Yes (Urinary retention postop, irving replaced on 06/21) Pablo Stockings Discontinue Date: once walking for 10 minutes, 3-4 times per day Wound Care Instructions: Follow up with Dr. Pinto in 2 weeks for your postop appointment. Call [phone] for this appointment. No bending, lifting, twisting more than 5-10 pounds for 6 weeks. Wear your brace at all times when you are out of bed. May shower, please change dressing DAILY and keep dry. keep showers short, 5-7 minutes may let warm soapy water wash over incision, no scrubbing, pat dry, leave clean and dry, and replace with DRY dressing daily. Lovenox should continue until patient is walking 3-4 times a day for 10 minutes at a time. Follow up with urology as outpatient if irving unable to be taken out. Call [facility] with any questions or concerns [phone] Activity/Weight Bearing Restrictions: Follow up with Dr. Pinto in 2 weeks for your postop appointment. Call [phone] for this appointment. No bending, lifting , twisting more than 5-10 pounds for 6 weeks. Wear your brace at all times when you are out of bed. May shower, please change dressing DAILY and keep dry. keep showers short, 5-7 minutes may let warm soapy water wash over incision, no scrubbing, pat dry, leave clean and dry, and replace with DRY dressing daily. Lovenox should continue until patient is walking 3-4 times a day for 10 minutes at a time. Follow up with urology as outpatient if irving unable to be taken out. Call [facility] with any questions or concerns [phone] Equipment: Wear LSO when out of bed Additional Instructions: Follow up with Dr. Pinto in 2 weeks for your postop appointment. Call [phone] for this appointment No bending, lifting, twisting more than 5-10 pounds for 6 weeks Wear your brace at all times when you are out of bed May shower, do not soak or saturate incision. Pat incision dry keep showers short, 5-7 minutes may let warm soapy water wash over incision, no scrubbing, pat dry, leave clean and dry, and replace with DRY dressing daily Lovenox should continue until patient is walking 3-4 times a day for 10 minutes at a time Follow up with urology as outpatient if irving unable to be taken out. Call [facility] with any questions or concerns [phone] Patient to receive outpatient therapy services under PART B. Patient needs speech therapy evaluation/treatment for cognition/dementia. - Follow Up Care Current Providers and Referrals: NONE *PRIMARY CARE P,. [Unknown] - Christopher Quintana MD [Medical Doctor] - follow up in 2 weeks
--- NOTE | 2018-07-01 14:38 | ASMTCMCOM ---
CM Note CM Note Notes: Nsg GABRIELLE Lima completed a P2P and [facility] still declines pt for SNF. Former spouse/MDPOA Pat reports she is still not healthy enough to have pt return to her home. Pt and Pat work with Tammy at [facility] for private pay contract. Pat states she talked to pt insurance librado and since pt has made a permanent move to [place] he will benefit from having a [place] insurance plan so she will work on finding an agent. Tammy reports pt will be able [facility] get [facility], so this is ordered in the inter-agency transfer of care. D/c orders sent to [facility] in [place]. Tammy scheduled stretcher transport for 1600, copy of PCS in chart. JOHNNA Aponte to call report. Date Signed: 07/01/2018 02:37 PM Electronically Signed By:CHERI Cerna
--- NOTE | 2018-07-01 15:11 | HOSPPROG ---
Hospitalist Progress Note Assessment/Plan: 83 yo M w spine surgery and toxic metabolic encephalopathy. *encephalopathy, metabolic - post-operative agitation multifactorial, has improved with medication adjustments, back to baseline -cont prn zyprexa -he is appropriate during my interview *hyponatremia - urine studies c/w SIADH, Na trending back up. TSH, cortisol nl. -cont fluid restriction and salt tabs *s/p T9-iliac fusion w L2 PSO, L1/2, L2/3, L3/4, L5/S1 TLIF - pod #14, poor pain control, neurosurgery requests no nsaids -cont scheduled tylenol, add prn tramadol -prn Robaxin, could try scheduling this -prn oxy (low dose) -added Lidoderm patch *urinary retention - indwelling irving -cont flomax -needs outpt urology f/u *HTN - cont amlodipine *anemia - post-op, stable *dvt prophylaxis: LMWH Subjective: Feeling ok. Still has some pain. Objective: Vital Signs Temp Pulse Resp BP Pulse Ox 36.7 C 79 14 176/94 H 97 07/01/18 08:00 07/01/18 08:00 07/01/18 08:00 07/01/18 08:00 07/01/18 08:00 Laboratory Results 06/20/18 04:19 07/01/18 05:15 06/30/18 07/01/18 07/02/18 05:59 05:59 05:59 Intake Total 840 925 Output Total 600 450 Balance 240 475 - Physical Exam Constitutional: appears nourished, chronically ill appearing Eyes: PERRL, anicteric sclera Ears, Nose, Mouth, Throat: moist mucous membranes, hearing normal Cardiovascular: No JVD, No edema Respiratory: no respiratory distress, reduced air movement Gastrointestinal: No tenderness, No ascites Skin: warm, normal color Musculoskeletal: no joint effusions, generalized weakness Psychiatric: not anxious, poor insight, poor memory ICD10 Worksheet Patient Problems: Problems Problem Status Onset Right wrist pain Acute Cellulitis of right hand Acute Fusion of spine of thoracolumbar region Acute
--- NOTE | 2018-07-05 10:38 | POSTANESTH ---
Post Anesthetic Evaluation Cardiovascular Status: Normal, Stable Respiratory Status: Normal, Stable Level of Consciousness/Mental Status: Can Participate in Eval, Alert and Oriented Pain Control: Inadeq, Add Tx Required (very difficult in setting of cognitive decline, major surgery and no NSAIDS) Complications Possibly Related to Anesthesia: None Noted
--- NOTE | 2018-07-05 13:11 | GDS ---
[f rep st] DISCHARGE SUMMARY ADMISSION DIAGNOSES: Lumbar degenerative joint disease, scoliosis. DISCHARGE DIAGNOSES: 1. Status post T9 to iliac fusion. 2. Hyponatremia. 3. Urinary retention. HISTORY/PHYSICAL: Please see admission history and physical. COURSE: Patient is an 83-year-old male who presented with severe lumbar degenerative joint disease a nd scoliosis. He had ongoing symptoms despite an extensive course of conservative care. He was take n to the operating room on 06/13/2018, where he underwent a T9 to iliac posterior instrumentation and fusion with an L1-2, L2-3, L3-4, L5-S1 transforaminal lumbar interbody fusion, and an L2 posterior s ayde osteotomy. There were no intraoperative complications and he was admitted to the ICU. He was followed by the hospitalist postoperatively due to his age and comorbid medical conditions. John quintana had ongoing urinary retention despite multiple attempts to remove his Turner catheter. He also had postoperative hyponatremia, which improved. He made a slow progress with physical therapy and occupa tional therapy. He was discharged home with home health care on 07/01/2018. Patient was discharged with lumbar fusion instructions. Recommend he return for neurosurgical followup appointment in 10 to 14 days. /[id number]/MODL
== END 2018-07-01 16:07 | DRG 453 ==
LOC: F3N 05:44 → EDSTATUS 07:15 → F2N 18:42 → F3N 06-14 11:55
PROVIDERS: ADMIT Neurological Surgery; ATTEND Neurological Surgery
DX: M47.26 Other spondylosis with radiculopathy, lumbar region (principal); M40.205 Unspecified kyphosis, thoracolumbar region; M43.16 Spondylolisthesis, lumbar region; M41.9 Scoliosis, unspecified; G92 Toxic encephalopathy; N40.1 Benign prostatic hyperplasia with lower urinary tract symptoms; R33.8 Other retention of urine; K59.00 Constipation, unspecified; E87.1 Hypo-osmolality and hyponatremia; E87.6 Hypokalemia; F03.90 Unspecified dementia, unspecified severity, without behavioral disturbance, psychotic disturbance, mood disturbance, and anxiety; Z59.0 Homelessness
CPT/HCPCS: 97116-GP; 97162-GP; 97166-GO; 97530-GO; 97530-GP; 97535-GO; C1713; J0171; J0461; J0690; J1100; J1650; J2001; J2250; J2270; J2274; J2370; J2405; J2704; J3010; J3480